=== PATIENT | female | born 2000 | race Caucasian/White ===

== ENCOUNTER 2024-03-05 17:50 | Emergency (ER) | payer BC, MEDICAID, SELFPAY ==
[2024-03-05 17:56] VITALS: BP 112/71; PULSE 78; RESP 16; TEMP 37.7; O2SAT 98; BMI 20.8
--- NOTE | 2024-03-05 18:25 | ED_ITS ---
HPI - Psych General Time Seen by Provider: 18:25 <Anel Barrios MD - Last Filed: 03/05/24 23:57> Date Seen: 03/05/24 <Anel Barrios MD - Last Filed: 03/05/24 23:57> Chief Complaint: Psychiatric Problem/Disorder <Anel Barrios MD - Last Filed: 03/05/24 23:57> Stated Complaint: Suicidal ideation <Anel Barrios MD - Last Filed: 03/05/24 23:57> Time Seen by Provider: 03/05/24 18:25 <Anel Barrios MD - Last Filed: 03/05/24 23:57> Source: patient, family, RN notes reviewed and old records reviewed <Anel Barrios MD - Last Filed: 03/05/24 23:57> Mode of arrival: ambulatory <Anel Barrios MD - Last Filed: 03/05/24 23:57> Limitations: no limitations <Anel Barrios MD - Last Filed: 03/05/24 23:57> History of Present Illness HPI Narrative: Lindsey is a 24-year-old female with history eating disorder, autism spectrum disorder, (stated by sister although this is not noted in any previous visits to our hospital) who is brought to the emergency room by his sister for suicidal ideation. Lindsey has been in a residential treatment center in the [facility] with [facility] for an eating disorder. She has been there approximately a month and then last week had some self-harm where she cause lacerations to her left arm with some glass and the end of a pencil eraser in which the eraser was removed and the metal was used. Staff on site gave her for stated as well as additional support. However she has been non compliant with their rules and was discharged today. She agreed that she had suicidal thoughts and passive plan. Her sister is here telling me most of the history and states that Lindsey tends to keep a lot of secrets and has a hard time expressing hers elf. Last TuesdayMarch 02 Lindsey had been seen by counselors and had denied suicidal ideation and is night self-harm. However her sister here today tells me that Lindsey has a long history of self-harm. Lindsey started Prozac 2 weeks ago. <Anel Barrios MD - Last Filed: 03/05/24 23:57> Related Data Home Medications: Home Medications Medication Instructions Recorded Confirmed acetaminophen 325 mg tablet mg PO 03/05/24 fluoxetine 20 mg capsule 20 mg PO DAILY 03/05/24 03/05/24 ondansetron 4 mg disintegrating mg PO 03/05/24 tablet polyethylene glycol 3350 17 g PO 03/05/24 gram/dose oral powder vitamin with calcium tab PO 03/05/24 no.72-iron 27 mg-folic acid 1 mg tablet (M-Prashant Plus) simethicone 125 mg chewable tablet 125 mg PO 3XD 03/05/24 03/05/24 <Anel Barrios MD - Last Filed: 03/05/24 23:57> Allergies/Adverse Reactions: Allergies Allergy/AdvReac Type Severity Reaction Status Date / Time No Known Drug Allergies Allergy Verified 03/05/24 18:06 <Anel Barrios MD - Last Filed: 03/05/24 23:57> Review of Systems Status of ROS: Reports: 10 or more systems reviewed and unremarkable except as noted in History and below <Anel Barrios MD - Last Filed: 03/05/24 23:57> Const: Reports: fever (Low-grade at 99.9.); Denies: chills <Anel Barrios MD - Last Filed: 03/05/24 23:57> Eyes: Denies: change in vision <Anel Barrios MD - Last Filed: 03/05/24 23:57> ENMT: Denies: throat pain or neck pain <Anel Barrios MD - Last Filed: 03/05/24 23:57> Cardio: Denies: chest pain <Anel Barrios MD - Last Filed: 03/05/24 23:57> Resp: Denies: cough <Anel Barrios MD - Last Filed: 03/05/24 23:57> GI: Denies: abdominal pain <Anel Barrios MD - Last Filed: 03/05/24 23:57> : Reports: other (Denies sexual activity) <Anel Barrios MD - Last Filed: 03/05/24 23:57> Musculo: Denies: neck pain <Anel Barrios MD - Last Filed: 03/05/24 23:57> Psych: Reports: anxiety and suicidal ideation <Anel Barrios MD - Last Filed: 03/05/24 23:57> [facility] Social History: Social History Smoking Status: Never smoker Do you use any of these nicotine containing products: None Second hand tobacco smoke exposure: No How often do you have a drink containing alcohol: never AUDIT-C Alcohol total score: 0 Non-prescribed substance use: denies use <Anel Barrios MD - Last Filed: 03/05/24 23:57> Exam Narrative: Exam Narrative: Lindsey is awake and oriented. She has very poor visual contact. She is preferring to hang her head and speaks very softly. She is moving her legs quite quickly as if she is very agitated and very anxious but her pulses are actually around 70. Eyes are clear. With regular rate and rhythm and lungs are clear bilaterally. Abdomen soft nontender. Moving all extremities. Examination of her left arm shows multiple superficial lacerations in the mid to late range of healing on the dorsum and volar aspect of her forearm. There is a less than dime-sized area of purulence on the dorsal aspect. No foreign bodies are noted. There is mild erythema surrounding this area. Evaluation, wound culture accomplished, cleansing and dressing all done at the same time. <Anel Barrios MD - Last Filed: 03/05/24 23:57> Const: Vital Signs, click to edit/add: Vital Signs - 24 hr 03/07/24 09:55 03/07/24 23:35 03/08/24 05:03 Temperature 98.1 F 98.1 F Pulse Rate [Pulse Oximeter] 63 57 L 60 Respiratory Rate 18 16 16 Blood Pressure [Ri ght Upper Arm] 119/70 90/47 L 102/55 L Pulse Oximetry 100 97 97 Oxygen Delivery Me thod Room Air Room Air <Anel Barrios MD - Last Filed: 03/05/24 23:57> Vital Signs, click to edit/add: Vital Signs - 24 hr 03/07/24 09:55 03/07/24 23:35 03/08/24 05:03 Temperature 98.1 F 98.1 F Pulse Rate [Pulse Oximeter] 63 57 L 60 Respiratory Rate 18 16 16 Blood Pressure [Ri ght Upper Arm] 119/70 90/47 L 102/55 L Pulse Oximetry 100 97 97 Oxygen Delivery Me thod Room Air Room Air <Tommy Mccauley MD - Last Filed: 03/06/24 10:23> Vital Signs, click to edit/add: Vital Signs - 24 hr 03/07/24 09:55 03/07/24 23:35 03/08/24 05:03 Temperature 98.1 F 98.1 F Pulse Rate [Pulse Oximeter] 63 57 L 60 Respiratory Rate 18 16 16 Blood Pressure [Ri ght Upper Arm] 119/70 90/47 L 102/55 L Pulse Oximetry 100 97 97 Oxygen Delivery Me thod Room Air Room Air <Alvarez Paez MD - Last Filed: 03/06/24 16:10> Vital Signs, click to edit/add: Vital Signs - 24 hr 03/07/24 09:55 03/07/24 23:35 03/08/24 05:03 Temperature 98.1 F 98.1 F Pulse Rate [Pulse Oximeter] 63 57 L 60 Respiratory Rate 18 16 16 Blood Pressure [Ri ght Upper Arm] 119/70 90/47 L 102/55 L Pulse Oximetry 100 97 97 Oxygen Delivery Me thod Room Air Room Air <Juarez Uriostegui MD - Last Filed: 03/06/24 20:22> Vital Signs, click to edit/add: Vital Signs - 24 hr 03/07/24 09:55 03/07/24 23:35 03/08/24 05:03 Temperature 98.1 F 98.1 F Pulse Rate [Pulse Oximeter] 63 57 L 60 Respiratory Rate 18 16 16 Blood Pressure [Ri ght Upper Arm] 119/70 90/47 L 102/55 L Pulse Oximetry 100 97 97 Oxygen Delivery Me thod Room Air Room Air <Keren Valiente MD - Last Filed: 03/15/24 00:00> Vital Signs, click to edit/add: Vital Signs - 24 hr 03/07/24 09:55 03/07/24 23:35 03/08/24 05:03 Temperature 98.1 F 98.1 F Pulse Rate [Pulse Oximeter] 63 57 L 60 Respiratory Rate 18 16 16 Blood Pressure [Ri ght Upper Arm] 119/70 90/47 L 102/55 L Pulse Oximetry 100 97 97 Oxygen Delivery Me thod Room Air Room Air <Reno Hernandez MD - Last Filed: 03/07/24 15:12> Documenting provider has reviewed patient's vital signs: yes <Anel Barrios MD - Last Filed: 03/05/24 23:57> Course Course ED Course: At this time Lindsey presents with history of eating disorder, was directed to leave the program because she was non compliant, history of autism spectrum disorder who comes to the emergency room with suicidal ideation. She started her Prozac 2 weeks ago. Sister is very worried about her. Discusses suicidal ideation somewhat passively but did have an idea to hang herself. There is a dramatic element in effect to with the very anxious behavior shaking of the legs difficulty with speaking but heart rate is normal. I do think she has very early cellulitis and 1 of her wounds and therefore will start her on Keflex 500 mg p.o.. A given history of eating disorder and suicidal ideation will also check CBC, comprehensive panel, salicylate, acetaminophen, drug screen, urinalysis, test, alcohol. Will add on vitamin-D, magnesium and TSH. Patient is agreeable to this. <Anel Barrios MD - Last Filed: 03/05/24 23:57> Reevaluation(s) Reevaluation #1: At the pleasure of speaking with [employer] industrial economics professor who does recommend inpatient treatment for Lindsey. She denies suicidal ideation in the room and yet told sister that she does have a plan to kill herself. She does not appear to be in a state that she would be able to contract for safety, she has no outside services at this time. Therefore will recommend inpatient treatment. Is now changing into scrubs. She has requested something for anxiety and I have ordered Ativan 1 mg p.o. I did speak to Lindsey and her sister. Lindsey is tearful at this time. Eating small amounts of food right now. She will be placed in patient. Sister has limited us to within an hour of this area. Loly did talk to her about how challenging that may be. If we are unable to find placement will need to reassess and possibly expand our area of treatment. <Anel Barrios MD - Last Filed: 03/05/24 23:57> Reevaluation #2: Recheck-patient signed out to Dr. Paez at shift change-10:00 a.m. on 03/06. 24-year-old female with a history of eating disorder recently and [facility], now out) with self-harming behavior and suicidal ideation. She was seen yesterday and has been boarding in the ER awaiting inpatient mental health placement. She is medically clear. She is not on a hold but she would be holdable. So far she is voluntary. Through the day shift she was evaluated by several inpatient mental health facilities and they declined her. Unclear why they are declining. At 3:00 p.m. we reordered [facility] evaluation to repeat check. Signed out to my partner, Dr. Uriostegui at shift change-1600. <Alvarez Paez MD - Last Filed: 03/06/24 16:10> Time of Reevaluation #3: 20:20 <Juarez Uriostegui MD - Last Filed: 03/06/24 20:22> Reevaluation #3: Patient accepted in sign-out at 4:00 p.m.. Briefly, 24-year-old female with history of eating disorder presents with suicide ideation. Patient had repeat deck assessment and continue to recommend inpatient treatment. Difficulty with placement secondary to coexisting eating disorder, consider contacting [facility] for advice tomorrow <Juarez Uriostegui MD - Last Filed: 03/06/24 20:22> Additional Reevaluation(s): 03/07/24 0720- I assumed care for patient overnight, no additional issues or updates. Awaiting patient placement and or social media assistant consult for assistance. Vital signs remained stable, no additional medications were given. Dr. Valiente 03/08/24-0711- I assumed care for patient overnight only. No additional issues or updates. We continue to await placement recommendations which seem dismal. No additional care or medications were needed. Nursing team did report to me that she slept comfortably through the night. - Dr. Valiente <Keren Valiente MD - Last Filed: 03/15/24 00:00> Vital Signs Vital signs: Initial Vital Signs Temperature 99.9 F H 03/05/24 17:56 Temperature Source Temporal Artery Scan 03/05/24 17:56 Pulse Rate 78 03/05/24 17:56 Respiratory Rate 16 03/05/24 17:56 Blood Pressure 112/71 03/05/24 17:56 Blood Pressure Mean 84 03/05/24 17:56 Blood Pressure Position Sitting 03/05/24 17:56 Pulse Oximetry 98 03/05/24 17:56 Oxygen Delivery Method Room Air 03/05/24 17:56 Vital Signs Temperature 99.9 F H 03/05/24 17:56 Pulse Rate 78 03/05/24 17:56 Respiratory Rate 16 03/05/24 17:56 Blood Pressure 112/71 03/05/24 17:56 Pulse Oximetry 98 03/05/24 17:56 Oxygen Delivery Method Room Air 03/05/24 17:56 Temperature 97.3 F L 03/08/24 14:00 Pulse Rate 60 03/08/24 14:00 Respiratory Rate 12 03/08/24 14:00 Blood Pressure 116/63 03/08/24 14:00 Pulse Oximetry 97 03/08/24 05:03 Oxygen Delivery Method Room Air 03/08/24 05:03 <Anel Barrios MD - Last Filed: 03/05/24 23:57> Initial Vital Signs Temperature 99.9 F H 03/05/24 17:56 Temperature Source Temporal Artery Scan 03/05/24 17:56 Pulse Rate 78 03/05/24 17:56 Respiratory Rate 16 03/05/24 17:56 Blood Pressure 112/71 03/05/24 17:56 Blood Pressure Mean 84 03/05/24 17:56 Blood Pressure Position Sitting 03/05/24 17:56 Pulse Oximetry 98 03/05/24 17:56 Oxygen Delivery Method Room Air 03/05/24 17:56 Vital Signs Temperature 99.9 F H 03/05/24 17:56 Pulse Rate 78 03/05/24 17:56 Respiratory Rate 16 03/05/24 17:56 Blood Pressure 112/71 03/05/24 17:56 Pulse Oximetry 98 03/05/24 17:56 Oxygen Delivery Method Room Air 03/05/24 17:56 Temperature 97.3 F L 03/08/24 14:00 Pulse Rate 60 03/08/24 14:00 Respiratory Rate 12 03/08/24 14:00 Blood Pressure 116/63 03/08/24 14:00 Pulse Oximetry 97 03/08/24 05:03 Oxygen Delivery Method Room Air 03/08/24 05:03 <Tommy Mccauley MD - Last Filed: 03/06/24 10:23> Initial Vital Signs Temperature 99.9 F H 03/05/24 17:56 Temperature Source Temporal Artery Scan 03/05/24 17:56 Pulse Rate 78 03/05/24 17:56 Respiratory Rate 16 03/05/24 17:56 Blood Pressure 112/71 03/05/24 17:56 Blood Pressure Mean 84 03/05/24 17:56 Blood Pressure Position Sitting 03/05/24 17:56 Pulse Oximetry 98 03/05/24 17:56 Oxygen Delivery Method Room Air 03/05/24 17:56 Vital Signs Temperature 99.9 F H 03/05/24 17:56 Pulse Rate 78 03/05/24 17:56 Respiratory Rate 16 03/05/24 17:56 Blood Pressure 112/71 03/05/24 17:56 Pulse Oximetry 98 03/05/24 17:56 Oxygen Delivery Method Room Air 03/05/24 17:56 Temperature 97.3 F L 03/08/24 14:00 Pulse Rate 60 03/08/24 14:00 Respiratory Rate 12 03/08/24 14:00 Blood Pressure 116/63 03/08/24 14:00 Pulse Oximetry 97 03/08/24 05:03 Oxygen Delivery Method Room Air 03/08/24 05:03 <Alvarez Paez MD - Last Filed: 03/06/24 16:10> Initial Vital Signs Temperature 99.9 F H 03/05/24 17:56 Temperature Source Temporal Artery Scan 03/05/24 17:56 Pulse Rate 78 03/05/24 17:56 Respiratory Rate 16 03/05/24 17:56 Blood Pressure 112/71 03/05/24 17:56 Blood Pressure Mean 84 03/05/24 17:56 Blood Pressure Position Sitting 03/05/24 17:56 Pulse Oximetry 98 03/05/24 17:56 Oxygen Delivery Method Room Air 03/05/24 17:56 Vital Signs Temperature 99.9 F H 03/05/24 17:56 Pulse Rate 78 03/05/24 17:56 Respiratory Rate 16 03/05/24 17:56 Blood Pressure 112/71 03/05/24 17:56 Pulse Oximetry 98 03/05/24 17:56 Oxygen Delivery Method Room Air 03/05/24 17:56 Temperature 97.3 F L 03/08/24 14:00 Pulse Rate 60 03/08/24 14:00 Respiratory Rate 12 03/08/24 14:00 Blood Pressure 116/63 03/08/24 14:00 Pulse Oximetry 97 03/08/24 05:03 Oxygen Delivery Method Room Air 03/08/24 05:03 <Juarez Uriostegui MD - Last Filed: 03/06/24 20:22> Initial Vital Signs Temperature 99.9 F H 03/05/24 17:56 Temperature Source Temporal Artery Scan 03/05/24 17:56 Pulse Rate 78 03/05/24 17:56 Respiratory Rate 16 03/05/24 17:56 Blood Pressure 112/71 03/05/24 17:56 Blood Pressure Mean 84 03/05/24 17:56 Blood Pressure Position Sitting 03/05/24 17:56 Pulse Oximetry 98 03/05/24 17:56 Oxygen Delivery Method Room Air 03/05/24 17:56 Vital Signs Temperature 99.9 F H 03/05/24 17:56 Pulse Rate 78 03/05/24 17:56 Respiratory Rate 16 03/05/24 17:56 Blood Pressure 112/71 03/05/24 17:56 Pulse Oximetry 98 03/05/24 17:56 Oxygen Delivery Method Room Air 03/05/24 17:56 Temperature 97.3 F L 03/08/24 14:00 Pulse Rate 60 03/08/24 14:00 Respiratory Rate 12 03/08/24 14:00 Blood Pressure 116/63 03/08/24 14:00 Pulse Oximetry 97 03/08/24 05:03 Oxygen Delivery Method Room Air 03/08/24 05:03 <Keren Valiente MD - Last Filed: 03/15/24 00:00> Initial Vital Signs Temperature 99.9 F H 03/05/24 17:56 Temperature Source Temporal Artery Scan 03/05/24 17:56 Pulse Rate 78 03/05/24 17:56 Respiratory Rate 16 03/05/24 17:56 Blood Pressure 112/71 03/05/24 17:56 Blood Pressure Mean 84 03/05/24 17:56 Blood Pressure Position Sitting 03/05/24 17:56 Pulse Oximetry 98 03/05/24 17:56 Oxygen Delivery Method Room Air 03/05/24 17:56 Vital Signs Temperature 99.9 F H 03/05/24 17:56 Pulse Rate 78 03/05/24 17:56 Respiratory Rate 16 03/05/24 17:56 Blood Pressure 112/71 03/05/24 17:56 Pulse Oximetry 98 03/05/24 17:56 Oxygen Delivery Method Room Air 03/05/24 17:56 Temperature 97.3 F L 03/08/24 14:00 Pulse Rate 60 03/08/24 14:00 Respiratory Rate 12 03/08/24 14:00 Blood Pressure 116/63 03/08/24 14:00 Pulse Oximetry 97 03/08/24 05:03 Oxygen Delivery Method Room Air 03/08/24 05:03 <Reno Hernandez MD - Last Filed: 03/07/24 15:12> Medications Administered Medications: Discontinued Medications Generic Name Dose Route Start Last Admin Trade Name Freq PRN Reason Stop Dose Admin Cephalexin HCl 500 mg 03/05/24 18:53 03/05/24 19:03 Cephalexin 500 Mg Capsule PO 03/05/24 18:54 500 mg ONCE ONE Administration Cephalexin HCl 500 mg 03/06/24 09:00 03/08/24 09:12 Cephalexin 500 Mg Capsule PO 500 mg TID RUSS Administration Fluoxetine HCl 20 mg 03/06/24 09:00 03/08/24 09:12 Fluoxetine Hcl 20 Mg Capsule PO 20 mg DAILY RUSS Administration Lorazepam 1 mg 03/05/24 20:25 03/05/24 20:32 Lorazepam 1 Mg Tablet PO 03/05/24 20:26 1 mg ONCE ONE Administration Lorazepam 0.5 mg 03/06/24 08:50 03/07/24 13:42 Lorazepam 0.5 Mg Tablet PO 0.5 mg Q4H PRN Administration <Anel Barrios MD - Last Filed: 03/05/24 23:57> Discontinued Medications Generic Name Dose Route Start Last Admin Trade Name Freq PRN Reason Stop Dose Admin Cephalexin HCl 500 mg 03/05/24 18:53 03/05/24 19:03 Cephalexin 500 Mg Capsule PO 03/05/24 18:54 500 mg ONCE ONE Administration Cephalexin HCl 500 mg 03/06/24 09:00 03/08/24 09:12 Cephalexin 500 Mg Capsule PO 500 mg TID RUSS Administration Fluoxetine HCl 20 mg 03/06/24 09:00 03/08/24 09:12 Fluoxetine Hcl 20 Mg Capsule PO 20 mg DAILY RUSS Administration Lorazepam 1 mg 03/05/24 20:25 03/05/24 20:32 Lorazepam 1 Mg Tablet PO 03/05/24 20:26 1 mg ONCE ONE Administration Lorazepam 0.5 mg 03/06/24 08:50 03/07/24 13:42 Lorazepam 0.5 Mg Tablet PO 0.5 mg Q4H PRN Administration <Tommy Mccauley MD - Last Filed: 03/06/24 10:23> Discontinued Medications Generic Name Dose Route Start Last Admin Trade Name Freq PRN Reason Stop Dose Admin Cephalexin HCl 500 mg 03/05/24 18:53 03/05/24 19:03 Cephalexin 500 Mg Capsule PO 03/05/24 18:54 500 mg ONCE ONE Administration Cephalexin HCl 500 mg 03/06/24 09:00 03/08/24 09:12 Cephalexin 500 Mg Capsule PO 500 mg TID RUSS Administration Fluoxetine HCl 20 mg 03/06/24 09:00 03/08/24 09:12 Fluoxetine Hcl 20 Mg Capsule PO 20 mg DAILY RUSS Administration Lorazepam 1 mg 03/05/24 20:25 03/05/24 20:32 Lorazepam 1 Mg Tablet PO 03/05/24 20:26 1 mg ONCE ONE Administration Lorazepam 0.5 mg 03/06/24 08:50 03/07/24 13:42 Lorazepam 0.5 Mg Tablet PO 0.5 mg Q4H PRN Administration <Alvarez Paez MD - Last Filed: 03/06/24 16:10> Discontinued Medications Generic Name Dose Route Start Last Admin Trade Name Freq PRN Reason Stop Dose Admin Cephalexin HCl 500 mg 03/05/24 18:53 03/05/24 19:03 Cephalexin 500 Mg Capsule PO 03/05/24 18:54 500 mg ONCE ONE Administration Cephalexin HCl 500 mg 03/06/24 09:00 03/08/24 09:12 Cephalexin 500 Mg Capsule PO 500 mg TID RUSS Administration Fluoxetine HCl 20 mg 03/06/24 09:00 03/08/24 09:12 Fluoxetine Hcl 20 Mg Capsule PO 20 mg DAILY RUSS Administration Lorazepam 1 mg 03/05/24 20:25 03/05/24 20:32 Lorazepam 1 Mg Tablet PO 03/05/24 20:26 1 mg ONCE ONE Administration Lorazepam 0.5 mg 03/06/24 08:50 03/07/24 13:42 Lorazepam 0.5 Mg Tablet PO 0.5 mg Q4H PRN Administration <Juarez Uriostegui MD - Last Filed: 03/06/24 20:22> Discontinued Medications Generic Name Dose Route Start Last Admin Trade Name Freq PRN Reason Stop Dose Admin Cephalexin HCl 500 mg 03/05/24 18:53 03/05/24 19:03 Cephalexin 500 Mg Capsule PO 03/05/24 18:54 500 mg ONCE ONE Administration Cephalexin HCl 500 mg 03/06/24 09:00 03/08/24 09:12 Cephalexin 500 Mg Capsule PO 500 mg TID RUSS Administration Fluoxetine HCl 20 mg 03/06/24 09:00 03/08/24 09:12 Fluoxetine Hcl 20 Mg Capsule PO 20 mg DAILY RUSS Administration Lorazepam 1 mg 03/05/24 20:25 03/05/24 20:32 Lorazepam 1 Mg Tablet PO 03/05/24 20:26 1 mg ONCE ONE Administration Lorazepam 0.5 mg 03/06/24 08:50 03/07/24 13:42 Lorazepam 0.5 Mg Tablet PO 0.5 mg Q4H PRN Administration <Keren Valiente MD - Last Filed: 03/15/24 00:00> Discontinued Medications Generic Name Dose Route Start Last Admin Trade Name Freq PRN Reason Stop Dose Admin Cephalexin HCl 500 mg 03/05/24 18:53 03/05/24 19:03 Cephalexin 500 Mg Capsule PO 03/05/24 18:54 500 mg ONCE ONE Administration Cephalexin HCl 500 mg 03/06/24 09:00 03/08/24 09:12 Cephalexin 500 Mg Capsule PO 500 mg TID RUSS Administration Fluoxetine HCl 20 mg 03/06/24 09:00 03/08/24 09:12 Fluoxetine Hcl 20 Mg Capsule PO 20 mg DAILY RUSS Administration Lorazepam 1 mg 03/05/24 20:25 03/05/24 20:32 Lorazepam 1 Mg Tablet PO 03/05/24 20:26 1 mg ONCE ONE Administration Lorazepam 0.5 mg 03/06/24 08:50 03/07/24 13:42 Lorazepam 0.5 Mg Tablet PO 0.5 mg Q4H PRN Administration <Reno Hernandez MD - Last Filed: 03/07/24 15:12> MDM - Psych MDM Narrative Medical decision making narrative: 1. Suicidal ideation -patient is not completely forthcoming with answers to questions about suicidal ideation or self-harm. Lindsey had admitted to sister earlier today about suicidal ideation with intent to hang herself. Now she completely denies suicidal ideation but is not making good eye contact. I do not feel that we are able to contract for safety or guarantee safety of this young woman if she departs. Therefore will have her stay. Mental health industrial economics professor agrees that she needs inpatient treatment. I agree with this as well. She is voluntary at this time. Patient does request medication for anxiety and she is given Ativan p.o.. Laboratory values reassuring. Negative for Tylenol, alcohol, salicylates and negative drug screen. 2. Eating disorder-has been in a residential treatment program with [facility] in the [facility] over the past month. She has normal kidney function, no evidence of increased LFTs, has low normal vitamin-D and magnesium is 2.2. The this does appear to be some evidence of appropriate p.o. intake over the past month. 2. Autism spectrum disorder -no documentation in our chart of this. Patient makes poor eye contact but is answering questions appropriately although quietly. 3. Early cellulitis-1st dose of Keflex given. Remainder of prescription put into [facility]. 500 mg p.o. t.i.d. x7 days. 4. Disposition-we are looking for placement in the area. Nursing staff does tell me that Lindsey nelson does understand if we do have to expand outside of the preferred area which is 1 hour cervical away from here. This patient will be signed out to my partner Dr. Mccauley 4 disposition. Patient has been resting comfortably and is cooperative. <Anel Barrios MD - Last Filed: 03/05/24 23:57> 1. Suicidal ideation -patient is not completely forthcoming with answers to questions about suicidal ideation or self-harm. Lindsey had admitted to sister earlier today about suicidal ideation with intent to hang herself. Now she completely denies suicidal ideation but is not making good eye contact. I do not feel that we are able to contract for safety or guarantee safety of this young woman if she departs. Therefore will have her stay. Mental health industrial economics professor agrees that she needs inpatient treatment. I agree with this as well. She is voluntary at this time. Patient does request medication for anxiety and she is given Ativan p.o.. Laboratory values reassuring. Negative for Tylenol, alcohol, salicylates and negative drug screen. 2. Eating disorder-has been in a residential treatment program with [facility] in the [facility] over the past month. She has normal kidney function, no evidence of increased LFTs, has low normal vitamin-D and magnesium is 2.2. The this does appear to be some evidence of appropriate p.o. intake over the past month. 2. Autism spectrum disorder -no documentation in our chart of this. Patient makes poor eye contact but is answering questions appropriately although quietly. 3. Early cellulitis-1st dose of Keflex given. Remainder of prescription put into instant med[facility]. 500 mg p.o. t.i.d. x7 days. 4. Disposition-we are looking for placement in the area. Nursing staff does tell me that Lindsey nelson does understand if we do have to expand outside of the preferred area which is 1 hour away from here. This patient will be signed out to my partner Dr. Mccauley 4 disposition. Patient has been resting comfortably and is cooperative. Parisa --I received this patient at change of shift. Anticipating the psychiatric placement. Discuss this case with prior provider and have reviewed records. No events. Medically clear for psychiatric placement. 0830 -- Has had an uneventful night. Have ordered scheduled cephalexin and fluoxetine and p.r.n. lorazepam. Has been decline from a psychiatric placement to this point. <Tommy Mccauley MD - Last Filed: 03/06/24 10:23> 1. Suicidal ideation -patient is not completely forthcoming with answers t o questions about suicidal ideation or self-harm. Lindsey had admitted to sister earlier today about suicidal ideation with intent to hang herself. Now she completely denies suicidal ideation but is not making good eye contact. I do not feel that we are able to contract for safety or guarantee safety of this young woman if she departs. Therefore will have her stay. Mental health industrial economics professor agrees that she needs inpatient treatment. I agree with this as well. She is voluntary at this time. Patient does request medication for anxiety and she is given Ativan p.o.. Laboratory values reassuring. Negative for Tylenol, alcohol, salicylates and negative drug screen. 2. Eating disorder-has been in a residential treatment program with Romy vinicius in the [facility] over the past month. She has normal kidney function, no evidence of increased LFTs, has low normal vitamin-D and magnesium is 2.2. The this does appear to be some evidence of appropriate p.o. intake over the past month. 2. Autism spectrum disorder -no documentation in our chart of this. Patient makes poor eye contact but is answering questions appropriately although quietly. 3. Early cellulitis-1st dose of Keflex given. Remainder of prescription put into instant med[facility]. 500 mg p.o. t.i.d. x7 days. 4. Disposition-we are looking for placement in the area. Nursing staff does tell me that Lindsey nelson does understand if we do have to expand outside of the preferred area which is 1 hour away from here. This patient will be signed out to my partner Dr. Mccauley 4 disposition. Patient has been resting comfortably and is cooperative. Parisa --I received this patient at change of shift. Anticipating the psychiatric placement. Discuss this case with prior provider and have reviewed records. No events. Medically clear for psychiatric placement. 0830 -- Has had an uneventful night. Have ordered scheduled cephalexin and fluoxetine and p.r.n. lorazepam. Has been decline from a psychiatric placement to this point. Addendum 10:07 a.m. 03/07/2024: Patient has had no significant problems on this shift, social Service is still attempting to make a transfer for mental health an eating disorder. <Reno Hernandez MD - Last Filed: 03/07/24 15:12> Medical Records Attestation: I reviewed the patient's medical records. <Anel Barrios MD - Last Filed: 03/05/24 23:57> Lab Data Attestation: I reviewed the patient's lab results. <Anel Barrios MD - Last Filed: 03/05/24 23:57> Labs: Lab Results 04/08/24 04/08/24 04/09/24 Range/Units 18:57 19:00 02:05 WBC 6.35 (4.50-11.00) K/uL RBC 4.30 (4.00-5.20) m/uL Hgb 13.0 (12.0-16.0) gm/dL Hct 38.3 (33.0-51.0) % MCV 89 (80-100) fL MCH 30 (26-34) pg MCHC 34 (32-36) gm/dL RDW Coeff of Anel 12.6 (11.5-15.5) % Plt Count 206 (140-440) K/uL Neut % (Auto) 54.4 (42.0-72.0) % Lymph % (Auto) 34.0 (20-44) % Burnett % (Auto) 9.0 (0.0-11.0) % Eos % (Auto) 1.6 (0.0-7.0) % Baso % (Auto) 0.8 (0.0-3.0) % Neut # (Auto) 3.46 (1.7-7.0) K/uL Lymph # (Auto) 2.16 (0.90-2.90) K/uL Burnett # (Auto) 0.60 (0.00-0.90) K/UL Eos # (Auto) 0.10 (0.00-0.50) K/uL Baso # (Auto) 0.05 (0.00-0.30) K/uL Abs Immat Gran (auto) 0.01 (0.00-0.30) K/uL Imm/Tot Granulo (auto) 0.2 % Sodium 138 (135-149) mmol/L Potassium 3.9 (3.6-5.1) mmol/L Chloride 105 (96-114) mmol/L Carbon Dioxide 24 (20-32) mmol/L Anion Gap 9 (7-15) mEq/L BUN 12 (5-24) mg/dL Creatinine 0.6 (0.5-1.5) mg/dL Estimated Creat Clear 144.28 Estimated GFR 130 ml/min Glucose 95 (60-115) mg/dL Calcium 9.8 (8.4-10.6) mg/dL Magnesium 2.2 (1.5-2.6) mg/dL Total Bilirubin 0.4 (0.1-1.5) mg/dL AST 22 (12-35) U/L ALT 10 (4-35) U/L Alkaline Phosphatase 48 (40-150) U/L C-Reactive Protein < 0.5 L (0.5-1.0) mg/dL Total Protein 8.1 (6.0-8.3) g/dL Albumin 4.7 (3.3-5.0) g/dL 25-OH Vitamin D Total 32 (30-80) ng/mL TSH 2.700 (0.270-4.200) uIU/mL Urine Color Yellow (Yellow) Urine Appearance Clear (Clear) Urine pH 7.0 (5.0-8.5) Ur Specific Rawlins 1.010 (1.000-1.030) Urine Protein Negative (Negative) Urine Glucose (UA) Negative (Negative) Urine Ketones Negative (Negative) Urine Blood Negative (Negative) Urine Nitrite Negative (Negative) Urine Bilirubin Negative (Negative) Urine Urobilinogen 0.2 (0.2-1.0) Ur Leukocyte Esterase 2+ A (Negative) Urine RBC 0-2 (0-2) Urine WBC 2-5 (0-5) Ur Squamous Epith Cells Moderate A (None-Few) Urine Bacteria Moderate A (None) Urine HCG, Qual Negative (Negative) Salicylates < 1.0 L (1.0-10) mg/dL Urine Opiates Screen Negative (Negative) Ur Oxycodone Screen Negative (Negative) Urine Methadone Screen Negative (Negative) Acetaminophen < 10.0 L (10.0-30.0) ug/mL Ur Barbiturates Screen Negative (Negative) U Tricyclic Antidepress Negative (Negative) Ur Phencyclidine Scrn Negative (Negative) Ur Amphetamines Screen Negative (Negative) U Methamphetamines Scrn Negative (Negative) U Benzodiazepines Scrn Negative (Negative) Urine Cocaine Screen Negative (Negative) U Marijuana (THC) Screen Negative (Negative) Ur Drug Screen Comment See Note Ethyl Alcohol < 0.01 L (0.01-0.03) % SARS-CoV-2 (PCR) Negative SARS-CoV-2 (Negative) <Anel Barrios MD - Last Filed: 03/05/24 23:57> Lab Results 03/05/24 03/05/24 03/06/24 Range/Units 18:57 19:00 02:05 WBC 6.35 (4.50-11.00) K/uL RBC 4.30 (4.00-5.20) m/uL Hgb 13.0 (12.0-16.0) gm/dL Hct 38.3 (33.0-51.0) % MCV 89 (80-100) fL MCH 30 (26-34) pg MCHC 34 (32-36) gm/dL RDW Coeff of Anel 12.6 (11.5-15.5) % Plt Count 206 (140-440) K/uL Neut % (Auto) 54.4 (42.0-72.0) % Lymph % (Auto) 34.0 (20-44) % Burnett % (Auto) 9.0 (0.0-11.0) % Eos % (Auto) 1.6 (0.0-7.0) % Baso % (Auto) 0.8 (0.0-3.0) % Neut # (Auto) 3.46 (1.7-7.0) K/uL Lymph # (Auto) 2.16 (0.90-2.90) K/uL Burnett # (Auto) 0.60 (0.00-0.90) K/UL Eos # (Auto) 0.10 (0.00-0.50) K/uL Baso # (Auto) 0.05 (0.00-0.30) K/uL Abs Immat Gran (auto) 0.01 (0.00-0.30) K/uL Imm/Tot Granulo (auto) 0.2 % Sodium 138 (135-149) mmol/L Potassium 3.9 (3.6-5.1) mmol/L Chloride 105 (96-114) mmol/L Carbon Dioxide 24 (20-32) mmol/L Anion Gap 9 (7-15) mEq/L BUN 12 (5-24) mg/dL Creatinine 0.6 (0.5-1.5) mg/dL Estimated Creat Clear 144.28 Estimated GFR 130 ml/min Glucose 95 (60-115) mg/dL Calcium 9.8 (8.4-10.6) mg/dL Magnesium 2.2 (1.5-2.6) mg/dL Total Bilirubin 0.4 (0.1-1.5) mg/dL AST 22 (12-35) U/L ALT 10 (4-35) U/L Alkaline Phosphatase 48 (40-150) U/L C-Reactive Protein < 0.5 L (0.5-1.0) mg/dL Total Protein 8.1 (6.0-8.3) g/dL Albumin 4.7 (3.3-5.0) g/dL 25-OH Vitamin D Total 32 (30-80) ng/mL TSH 2.700 (0.270-4.200) uIU/mL Urine Color Yellow (Yellow) Urine Appearance Clear (Clear) Urine pH 7.0 (5.0-8.5) Ur Specific Rawlins 1.010 (1.000-1.030) Urine Protein Negative (Negative) Urine Glucose (UA) Negative (Negative) Urine Ketones Negative (Negative) Urine Blood Negative (Negative) Urine Nitrite Negative (Negative) Urine Bilirubin Negative (Negative) Urine Urobilinogen 0.2 (0.2-1.0) Ur Leukocyte Esterase 2+ A (Negative) Urine RBC 0-2 (0-2) Urine WBC 2-5 (0-5) Ur Squamous Epith Cells Moderate A (None-Few) Urine Bacteria Moderate A (None) Urine HCG, Qual Negative (Negative) Salicylates < 1.0 L (1.0-10) mg/dL Urine Opiates Screen Negative (Negative) Ur Oxycodone Screen Negative (Negative) Urine Methadone Screen Negative (Negative) Acetaminophen < 10.0 L (10.0-30.0) ug/mL Ur Barbiturates Screen Negative (Negative) U Tricyclic Antidepress Negative (Negative) Ur Phencyclidine Scrn Negative (Negative) Ur Amphetamines Screen Negative (Negative) U Methamphetamines Scrn Negative (Negative) U Benzodiazepines Scrn Negative (Negative) Urine Cocaine Screen Negative (Negative) U Marijuana (THC) Screen Negative (Negative) Ur Drug Screen Comment See Note Ethyl Alcohol < 0.01 L (0.01-0.03) % SARS-CoV-2 (PCR) Negative SARS-CoV-2 (Negative) <Tommy Mccauley MD - Last Filed: 03/06/24 10:23> Lab Results 03/05/24 03/05/24 03/06/24 Range/Units 18:57 19:00 02:05 WBC 6.35 (4.50-11.00) K/uL RBC 4.30 (4.00-5.20) m/uL Hgb 13.0 (12.0-16.0) gm/dL Hct 38.3 (33.0-51.0) % MCV 89 (80-100) fL MCH 30 (26-34) pg MCHC 34 (32-36) gm/dL RDW Coeff of Anel 12.6 (11.5-15.5) % Plt Count 206 (140-440) K/uL Neut % (Auto) 54.4 (42.0-72.0) % Lymph % (Auto) 34.0 (20-44) % Burnett % (Auto) 9.0 (0.0-11.0) % Eos % (Auto) 1.6 (0.0-7.0) % Baso % (Auto) 0.8 (0.0-3.0) % Neut # (Auto) 3.46 (1.7-7.0) K/uL Lymph # (Auto) 2.16 (0.90-2.90) K/uL Burnett # (Auto) 0.60 (0.00-0.90) K/UL Eos # (Auto) 0.10 (0.00-0.50) K/uL Baso # (Auto) 0.05 (0.00-0.30) K/uL Abs Immat Gran (auto) 0.01 (0.00-0.30) K/uL Imm/Tot Granulo (auto) 0.2 % Sodium 138 (135-149) mmol/L Potassium 3.9 (3.6-5.1) mmol/L Chloride 105 (96-114) mmol/L Carbon Dioxide 24 (20-32) mmol/L Anion Gap 9 (7-15) mEq/L BUN 12 (5-24) mg/dL Creatinine 0.6 (0.5-1.5) mg/dL Estimated Creat Clear 144.28 Estimated GFR 130 ml/min Glucose 95 (60-115) mg/dL Calcium 9.8 (8.4-10.6) mg/dL Magnesium 2.2 (1.5-2.6) mg/dL Total Bilirubin 0.4 (0.1-1.5) mg/dL AST 22 (12-35) U/L ALT 10 (4-35) U/L Alkaline Phosphatase 48 (40-150) U/L C-Reactive Protein < 0.5 L (0.5-1.0) mg/dL Total Protein 8.1 (6.0-8.3) g/dL Albumin 4.7 (3.3-5.0) g/dL 25-OH Vitamin D Total 32 (30-80) ng/mL TSH 2.700 (0.270-4.200) uIU/mL Urine Color Yellow (Yellow) Urine Appearance Clear (Clear) Urine pH 7.0 (5.0-8.5) Ur Specific Rawlins 1.010 (1.000-1.030) Urine Protein Negative (Negative) Urine Glucose (UA) Negative (Negative) Urine Ketones Negative (Negative) Urine Blood Negative (Negative) Urine Nitrite Negative (Negative) Urine Bilirubin Negative (Negative) Urine Urobilinogen 0.2 (0.2-1.0) Ur Leukocyte Esterase 2+ A (Negative) Urine RBC 0-2 (0-2) Urine WBC 2-5 (0-5) Ur Squamous Epith Cells Moderate A (None-Few) Urine Bacteria Moderate A (None) Urine HCG, Qual Negative (Negative) Salicylates < 1.0 L (1.0-10) mg/dL Urine Opiates Screen Negative (Negative) Ur Oxycodone Screen Negative (Negative) Urine Methadone Screen Negative (Negative) Acetaminophen < 10.0 L (10.0-30.0) ug/mL Ur Barbiturates Screen Negative (Negative) U Tricyclic Antidepress Negative (Negative) Ur Phencyclidine Scrn Negative (Negative) Ur Amphetamines Screen Negative (Negative) U Methamphetamines Scrn Negative (Negative) U Benzodiazepines Scrn Negative (Negative) Urine Cocaine Screen Negative (Negative) U Marijuana (THC) Screen Negative (Negative) Ur Drug Screen Comment See Note Ethyl Alcohol < 0.01 L (0.01-0.03) % SARS-CoV-2 (PCR) Negative SARS-CoV-2 (Negative) <Alvarez Paez MD - Last Filed: 03/06/24 16:10> Lab Results 03/05/24 03/05/24 03/06/24 Range/Units 18:57 19:00 02:05 WBC 6.35 (4.50-11.00) K/uL RBC 4.30 (4.00-5.20) m/uL Hgb 13.0 (12.0-16.0) gm/dL Hct 38.3 (33.0-51.0) % MCV 89 (80-100) fL MCH 30 (26-34) pg MCHC 34 (32-36) gm/dL RDW Coeff of Anel 12.6 (11.5-15.5) % Plt Count 206 (140-440) K/uL Neut % (Auto) 54.4 (42.0-72.0) % Lymph % (Auto) 34.0 (20-44) % Burnett % (Auto) 9.0 (0.0-11.0) % Eos % (Auto) 1.6 (0.0-7.0) % Baso % (Auto) 0.8 (0.0-3.0) % Neut # (Auto) 3.46 (1.7-7.0) K/uL Lymph # (Auto) 2.16 (0.90-2.90) K/uL Burnett # (Auto) 0.60 (0.00-0.90) K/UL Eos # (Auto) 0.10 (0.00-0.50) K/uL Baso # (Auto) 0.05 (0.00-0.30) K/uL Abs Immat Gran (auto) 0.01 (0.00-0.30) K/uL Imm/Tot Granulo (auto) 0.2 % Sodium 138 (135-149) mmol/L Potassium 3.9 (3.6-5.1) mmol/L Chloride 105 (96-114) mmol/L Carbon Dioxide 24 (20-32) mmol/L Anion Gap 9 (7-15) mEq/L BUN 12 (5-24) mg/dL Creatinine 0.6 (0.5-1.5) mg/dL Estimated Creat Clear 144.28 Estimated GFR 130 ml/min Glucose 95 (60-115) mg/dL Calcium 9.8 (8.4-10.6) mg/dL Magnesium 2.2 (1.5-2.6) mg/dL Total Bilirubin 0.4 (0.1-1.5) mg/dL AST 22 (12-35) U/L ALT 10 (4-35) U/L Alkaline Phosphatase 48 (40-150) U/L C-Reactive Protein < 0.5 L (0.5-1.0) mg/dL Total Protein 8.1 (6.0-8.3) g/dL Albumin 4.7 (3.3-5.0) g/dL 25-OH Vitamin D Total 32 (30-80) ng/mL TSH 2.700 (0.270-4.200) uIU/mL Urine Color Yellow (Yellow) Urine Appearance Clear (Clear) Urine pH 7.0 (5.0-8.5) Ur Specific Rawlins 1.010 (1.000-1.030) Urine Protein Negative (Negative) Urine Glucose (UA) Negative (Negative) Urine Ketones Negative (Negative) Urine Blood Negative (Negative) Urine Nitrite Negative (Negative) Urine Bilirubin Negative (Negative) Urine Urobilinogen 0.2 (0.2-1.0) Ur Leukocyte Esterase 2+ A (Negative) Urine RBC 0-2 (0-2) Urine WBC 2-5 (0-5) Ur Squamous Epith Cells Moderate A (None-Few) Urine Bacteria Moderate A (None) Urine HCG, Qual Negative (Negative) Salicylates < 1.0 L (1.0-10) mg/dL Urine Opiates Screen Negative (Negative) Ur Oxycodone Screen Negative (Negative) Urine Methadone Screen Negative (Negative) Acetaminophen < 10.0 L (10.0-30.0) ug/mL Ur Barbiturates Screen Negative (Negative) U Tricyclic Antidepress Negative (Negative) Ur Phencyclidine Scrn Negative (Negative) Ur Amphetamines Screen Negative (Negative) U Methamphetamines Scrn Negative (Negative) U Benzodiazepines Scrn Negative (Negative) Urine Cocaine Screen Negative (Negative) U Marijuana (THC) Screen Negative (Negative) Ur Drug Screen Comment See Note Ethyl Alcohol < 0.01 L (0.01-0.03) % SARS-CoV-2 (PCR) Negative SARS-CoV-2 (Negative) <Juarez Uriostegui MD - Last Filed: 03/06/24 20:22> Lab Results 03/05/24 03/05/24 03/06/24 Range/Units 18:57 19:00 02:05 WBC 6.35 (4.50-11.00) K/uL RBC 4.30 (4.00-5.20) m/uL Hgb 13.0 (12.0-16.0) gm/dL Hct 38.3 (33.0-51.0) % MCV 89 (80-100) fL MCH 30 (26-34) pg MCHC 34 (32-36) gm/dL RDW Coeff of Anel 12.6 (11.5-15.5) % Plt Count 206 (140-440) K/uL Neut % (Auto) 54.4 (42.0-72.0) % Lymph % (Auto) 34.0 (20-44) % Burnett % (Auto) 9.0 (0.0-11.0) % Eos % (Auto) 1.6 (0.0-7.0) % Baso % (Auto) 0.8 (0.0-3.0) % Neut # (Auto) 3.46 (1.7-7.0) K/uL Lymph # (Auto) 2.16 (0.90-2.90) K/uL Burnett # (Auto) 0.60 (0.00-0.90) K/UL Eos # (Auto) 0.10 (0.00-0.50) K/uL Baso # (Auto) 0.05 (0.00-0.30) K/uL Abs Immat Gran (auto) 0.01 (0.00-0.30) K/uL Imm/Tot Granulo (auto) 0.2 % Sodium 138 (135-149) mmol/L Potassium 3.9 (3.6-5.1) mmol/L Chloride 105 (96-114) mmol/L Carbon Dioxide 24 (20-32) mmol/L Anion Gap 9 (7-15) mEq/L BUN 12 (5-24) mg/dL Creatinine 0.6 (0.5-1.5) mg/dL Estimated Creat Clear 144.28 Estimated GFR 130 ml/min Glucose 95 (60-115) mg/dL Calcium 9.8 (8.4-10.6) mg/dL Magnesium 2.2 (1.5-2.6) mg/dL Total Bilirubin 0.4 (0.1-1.5) mg/dL AST 22 (12-35) U/L ALT 10 (4-35) U/L Alkaline Phosphatase 48 (40-150) U/L C-Reactive Protein < 0.5 L (0.5-1.0) mg/dL Total Protein 8.1 (6.0-8.3) g/dL Albumin 4.7 (3.3-5.0) g/dL 25-OH Vitamin D Total 32 (30-80) ng/mL TSH 2.700 (0.270-4.200) uIU/mL Urine Color Yellow (Yellow) Urine Appearance Clear (Clear) Urine pH 7.0 (5.0-8.5) Ur Specific Rawlins 1.010 (1.000-1.030) Urine Protein Negative (Negative) Urine Glucose (UA) Negative (Negative) Urine Ketones Negative (Negative) Urine Blood Negative (Negative) Urine Nitrite Negative (Negative) Urine Bilirubin Negative (Negative) Urine Urobilinogen 0.2 (0.2-1.0) Ur Leukocyte Esterase 2+ A (Negative) Urine RBC 0-2 (0-2) Urine WBC 2-5 (0-5) Ur Squamous Epith Cells Moderate A (None-Few) Urine Bacteria Moderate A (None) Urine HCG, Qual Negative (Negative) Salicylates < 1.0 L (1.0-10) mg/dL Urine Opiates Screen Negative (Negative) Ur Oxycodone Screen Negative (Negative) Urine Methadone Screen Negative (Negative) Acetaminophen < 10.0 L (10.0-30.0) ug/mL Ur Barbiturates Screen Negative (Negative) U Tricyclic Antidepress Negative (Negative) Ur Phencyclidine Scrn Negative (Negative) Ur Amphetamines Screen Negative (Negative) U Methamphetamines Scrn Negative (Negative) U Benzodiazepines Scrn Negative (Negative) Urine Cocaine Screen Negative (Negative) U Marijuana (THC) Screen Negative (Negative) Ur Drug Screen Comment See Note Ethyl Alcohol < 0.01 L (0.01-0.03) % SARS-CoV-2 (PCR) Negative SARS-CoV-2 (Negative) <Keren Valiente MD - Last Filed: 03/15/24 00:00> Lab Results 03/05/24 03/05/24 03/06/24 Range/Units 18:57 19:00 02:05 WBC 6.35 (4.50-11.00) K/uL RBC 4.30 (4.00-5.20) m/uL Hgb 13.0 (12.0-16.0) gm/dL Hct 38.3 (33.0-51.0) % MCV 89 (80-100) fL MCH 30 (26-34) pg MCHC 34 (32-36) gm/dL RDW Coeff of Anel 12.6 (11.5-15.5) % Plt Count 206 (140-440) K/uL Neut % (Auto) 54.4 (42.0-72.0) % Lymph % (Auto) 34.0 (20-44) % Burnett % (Auto) 9.0 (0.0-11.0) % Eos % (Auto) 1.6 (0.0-7.0) % Baso % (Auto) 0.8 (0.0-3.0) % Neut # (Auto) 3.46 (1.7-7.0) K/uL Lymph # (Auto) 2.16 (0.90-2.90) K/uL Burnett # (Auto) 0.60 (0.00-0.90) K/UL Eos # (Auto) 0.10 (0.00-0.50) K/uL Baso # (Auto) 0.05 (0.00-0.30) K/uL Abs Immat Gran (auto) 0.01 (0.00-0.30) K/uL Imm/Tot Granulo (auto) 0.2 % Sodium 138 (135-149) mmol/L Potassium 3.9 (3.6-5.1) mmol/L Chloride 105 (96-114) mmol/L Carbon Dioxide 24 (20-32) mmol/L Anion Gap 9 (7-15) mEq/L BUN 12 (5-24) mg/dL Creatinine 0.6 (0.5-1.5) mg/dL Estimated Creat Clear 144.28 Estimated GFR 130 ml/min Glucose 95 (60-115) mg/dL Calcium 9.8 (8.4-10.6) mg/dL Magnesium 2.2 (1.5-2.6) mg/dL Total Bilirubin 0.4 (0.1-1.5) mg/dL AST 22 (12-35) U/L ALT 10 (4-35) U/L Alkaline Phosphatase 48 (40-150) U/L C-Reactive Protein < 0.5 L (0.5-1.0) mg/dL Total Protein 8.1 (6.0-8.3) g/dL Albumin 4.7 (3.3-5.0) g/dL 25-OH Vitamin D Total 32 (30-80) ng/mL TSH 2.700 (0.270-4.200) uIU/mL Urine Color Yellow (Yellow) Urine Appearance Clear (Clear) Urine pH 7.0 (5.0-8.5) Ur Specific Rawlins 1.010 (1.000-1.030) Urine Protein Negative (Negative) Urine Glucose (UA) Negative (Negative) Urine Ketones Negative (Negative) Urine Blood Negative (Negative) Urine Nitrite Negative (Negative) Urine Bilirubin Negative (Negative) Urine Urobilinogen 0.2 (0.2-1.0) Ur Leukocyte Esterase 2+ A (Negative) Urine RBC 0-2 (0-2) Urine WBC 2-5 (0-5) Ur Squamous Epith Cells Moderate A (None-Few) Urine Bacteria Moderate A (None) Urine HCG, Qual Negative (Negative) Salicylates < 1.0 L (1.0-10) mg/dL Urine Opiates Screen Negative (Negative) Ur Oxycodone Screen Negative (Negative) Urine Methadone Screen Negative (Negative) Acetaminophen < 10.0 L (10.0-30.0) ug/mL Ur Barbiturates Screen Negative (Negative) U Tricyclic Antidepress Negative (Negative) Ur Phencyclidine Scrn Negative (Negative) Ur Amphetamines Screen Negative (Negative) U Methamphetamines Scrn Negative (Negative) U Benzodiazepines Scrn Negative (Negative) Urine Cocaine Screen Negative (Negative) U Marijuana (THC) Screen Negative (Negative) Ur Drug Screen Comment See Note Ethyl Alcohol < 0.01 L (0.01-0.03) % SARS-CoV-2 (PCR) Negative SARS-CoV-2 (Negative) <Reno Hernandez MD - Last Filed: 03/07/24 15:12> Discharge Plan Discharge Clinical Impression: Suicidal ideation <Anel Barrios MD - Last Filed: 03/05/24 23:57> Condition: Stable <Anel Barrios MD - Last Filed: 03/05/24 23:57> Prescriptions: No Action acetaminophen 325 mg tablet PO simethicone 125 mg tablet,chewable 125 mg PO 3XD polyethylene glycol 3350 17 gram/dose powder PO ondansetron 4 mg tablet,disintegrating PO fluoxetine 20 mg capsule 20 mg PO DAILY M- Plus 27 mg iron- 1 mg tablet PO <Anel Barrios MD - Last Filed: 03/05/24 23:57> Follow Up/Referrals: Marjan Neumann DO [Referring] - <Anel Barrios MD - Last Filed: 03/05/24 23:57>
[2024-03-05] MEDS: cephALEXin 500 MG CAPSULE PO (19:03)
[2024-03-05 19:05] LABS: Basophils Absolute Auto 0.05 K/uL (0.00-0.30); Basophils Percent Auto 0.8 % (0.0-3.0); Eosinophils Percent Auto 1.6 % (0.0-7.0); Hematocrit 38.3 % (33.0-51.0); Immature Granulocytes Abs Auto 0.01 K/uL (0.00-0.30); Immature Granulocytes Pct Auto 0.2 %; Lymphocytes Absolute Auto 2.16 K/uL (0.90-2.90); Mean Corpuscular HGB Conc 34 gm/dL (32-36); Mean Corpuscular Hemoglobin 30 pg (26-34); Mean Corpuscular Volume 89 fL (80-100); Neutrophils Absolute Auto 3.46 K/uL (1.7-7.0); Neutrophils Percent Auto 54.4 % (42.0-72.0); Platelet Count* 206 K/uL (140-440); RDW Coefficient of Variation % 12.6 % (11.5-15.5); White Blood Count* 6.35 K/uL (4.50-11.00)
[2024-03-05 19:10] LABS: Slide Review Reflex No
[2024-03-05 19:25] LABS: Appearance Urine Clear (Clear); Bilirubin Urine Negative (Negative); Blood Urine Negative (Negative); Color Urine Yellow (Yellow); Glucose Urine Negative (Negative); Ketones Urine Negative (Negative); Leukocyte Esterase Urine 2+ (Negative); Nitrite Urine Negative (Negative); Protein Urine Negative (Negative); Urobilinogen Urine 0.2 (0.2-1.0)
[2024-03-05 19:31] LABS: Amphetamine Screen Urine Negative (Negative); Barbiturate Screen Urine Negative (Negative); Benzodiazepines Screen Urine Negative (Negative); Cannabinoid Screen Urine Negative (Negative); Cocaine Screen Urine Negative (Negative); Methadone Screen Urine Negative (Negative); Methamphetamines Screen Urine Negative (Negative); Opiate Screen Urine Negative (Negative); Oxycodone Screen Urine Negative (Negative); Phencyclidine Screen Urine Negative (Negative); Tricyclic Antidepressant Urine Negative (Negative)
[2024-03-05 19:33] LABS: Albumin* 4.7 g/dL (3.3-5.0); Chloride* 105 mmol/L (96-114); Sodium* 138 mmol/L (135-149)
[2024-03-05 19:34] LABS: Potassium* 3.9 mmol/L (3.6-5.1)
[2024-03-05 19:36] LABS: Creatinine* 0.6 mg/dL (0.5-1.5); Est. Creatinine Clearance* 144.28; Estimated Glomerular Filt Rate 130 ml/min
[2024-03-05 19:37] LABS: Alanine Aminotransferase* 10 U/L (4-35); Alkaline Phosphatase* 48 U/L (40-150); Anion Gap 9 mEq/L (7-15); Aspartate Amino Transferase* 22 U/L (12-35); Bilirubin Total* 0.4 mg/dL (0.1-1.5); Blood Urea Nitrogen* 12 mg/dL (5-24); Calcium* 9.8 mg/dL (8.4-10.6); Carbon Dioxide* 24 mmol/L (20-32); Glucose* 95 mg/dL (60-115); Total Protein* 8.1 g/dL (6.0-8.3)
[2024-03-05 19:38] LABS: Magnesium* 2.2 mg/dL (1.5-2.6)
[2024-03-05 19:43] LABS: Acetaminophen* < 10.0 ug/mL (10.0-30.0); C Reactive Protein* < 0.5 mg/dL (0.5-1.0); Salicylate* < 1.0 mg/dL (1.0-10)
[2024-03-05 19:49] LABS: Bacteria Urine Moderate; RBC Urine 0-2 (0-2); Squamous Epithelial Cell Urine Moderate (None-Few)
[2024-03-05 19:50] LABS: Ur HCG Qualitative* Negative (Negative)
[2024-03-05 19:55] LABS: Ethanol* < 0.01 % (0.01-0.03)
[2024-03-05 20:14] LABS: Vitamin D 25 Hydroxy* 32 ng/mL (30-80)
[2024-03-05] MEDS: LORazepam 1 MG TABLET PO (20:32)
[2024-03-05 23:00] VITALS: BP 102/66; PULSE 64; RESP 16; TEMP 37.1; O2SAT 98
--- NOTE | 2024-03-06 00:09 | ED.NURSE ---
Inpatient bed identification summary received from [facility]. At this time, only facilities that may accept are [facility] and [facility]. Pt info packet faxed to both facilites.
[2024-03-06 02:42] LABS: SARS PCR* Negative SARS-CoV-2 (Negative)
--- NOTE | 2024-03-06 04:33 | PC.NURSE ---
pt resting, denies discomfort. Warm blanket given.
[2024-03-06 04:34] VITALS: BP 110/68; PULSE 70; RESP 16; TEMP 36.9; O2SAT 98
[2024-03-06 07:48] VITALS: BP 100/68; PULSE 72; RESP 16; TEMP 37.3; O2SAT 99
--- NOTE | 2024-03-06 08:05 | ED.NURSE ---
Patient cooperative this morning. Is making eye contact. Denies suicidal thoughts. Used restroom and brushed teeth. Declined shower and breakfast at this time. Stated that she moved here from [place] but grew up in [place]. Her sister Fartun lives in [place] and she is her primary support person. Patient stated she does not have contact with her parents. Dressing on arm cleaned up and changed this morning with bacitracin, telfa, kerlix.
[2024-03-06] MEDS: FLUOXETINE HCL 20 MG CAPSULE PO (09:26)
[2024-03-06] MEDS: cephALEXin 500 MG CAPSULE PO ×3 (09:26→21:49)
[2024-03-06] MEDS: LORazepam 0.5 MG TABLET PO ×2 (09:26→20:18)
[2024-03-06 11:05] VITALS: BP 90/59; PULSE 71; RESP 16; TEMP 37.3; O2SAT 99
--- NOTE | 2024-03-06 11:12 | PC.SOCIAL ---
Addendum entered by DALI Nicolas 03/06/24 15:45: Discharge planning: Updated list of all in-pt mental health facilities contacted today and decision on admit. 1. [facility] [phone] - no beds available, call back tomorrow after 9:00. They can consider a pt with eating disorder if bed is available. 2. [facility] [phone] (includes [place], [place] and [place])- no beds available. Call back tomorrow. Can only consider a pt with eating disorder for [place] facility if bed is available. 3. [facility] [phone] (includes [facility] and [place])- [facility] has a bed that pt can be assessed for. Only facility in their system who can consider an eating disorder patient is [place]. Faxed information to [facility] at [phone] - [facility] declined pt due to her acuity. 4. [facility] [phone] - no beds, call tomorrow after noon. 5. [facility] [phone] - no beds, call tomorrow morning. 6. [facility], not appropriate as they only accept voluntary patients, no hold or transport hold. 7. [place], [place]. not appropriate as they only accept voluntary patients, no hold or transport hold. 8. [facility]. [phone]. No beds available but would consider an eating disorder pt if bed was available. Call back tomorrow. 9. [facility] [phone] no bed available. Call back tomorrow. 10. [facility] - Declined at [place] due to not being able to meet her needs, which is only facility with a bed available to assess today. 11. [facility] [phone] ([place], , [place], [place], [place], [place]) no beds available today. Call back tomorrow. 12. [facility], . Faxed information for evaluation for wait list fax [phone]. 13. [facility] [phone] faxed information for evaluation for admit to fax#[phone]. 14. [facility] refused pt due to eating disorder. 15. [facility] refused pt due to eating disorder. welfare case worker to follow up as needed. Original Note: Discharge planning: Attempted to locate in-pt mental health placement with the following results: 1. [facility] [phone] - no beds available, call back tomorrow after 9:00. They can consider a pt with eating disorder if bed is available. 2. [facility] [phone]- no beds available. Call back tomorrow. Can only consider a pt with eating disorder for [facility] if bed is available. 3. [facility] intake [phone] - [facility] has a bed that pt can be assessed for. Only facility in their system who can consider an eating disorder patient is [facility]. Faxed information to Pam at [phone] - awaiting decision on admit. Previously per RN note, [facility] declined pt due to eating disorder diagnosis and [facility] has information and is assessing for admit. welfare case worker to follow up as needed.
[2024-03-06 14:33] VITALS: BP 98/50; PULSE 78; RESP 16; TEMP 37.1; O2SAT 99
--- NOTE | 2024-03-06 16:16 | ED.NURSE ---
Pt down to shower accompanied with security support analyst.
[2024-03-06 21:49] VITALS: BP 99/53; PULSE 62; RESP 16; O2SAT 98
--- NOTE | 2024-03-07 09:07 | ED.NURSE ---
Pt eating breakfast. Has been calm and cooperative at this time.
[2024-03-07] MEDS: cephALEXin 500 MG CAPSULE PO ×3 (09:28→23:35)
[2024-03-07] MEDS: FLUOXETINE HCL 20 MG CAPSULE PO (09:32)
[2024-03-07 09:55] VITALS: BP 119/70; PULSE 63; RESP 18; TEMP 36.7; O2SAT 100
--- NOTE | 2024-03-07 11:28 | PC.SOCIAL ---
Addendum entered by DALI Nicolas 03/07/24 13:05: Received call back from [facility] intake stating they can not accept pt's with an eating disorder. hair worker to continue to look for in-pt mental health placement. Original Note: Discharge planning: Updated list of all in-pt mental health facilities contacted yesterday and re-contacted today and decision on admit. 1. [facility] [phone] - no beds available, call back tomorrow after 9:00. They can consider a pt with eating disorder if bed is available. 2. [place] [phone] (includes [facility], [facility] and [place])- Faxed for assessment for [facility] facility [phone] attn: [facility]. No other beds available. 3. [facility] intake [phone] (includes [facility] and [facility])- [facility] has no beds today. Call back tomorrow. [facility] declined pt due to her acuity. 4. [facility] [phone] - no beds, call tomorrow after noon. 5. [facility] [phone] - no beds, call tomorrow morning. 6. [facility], not appropriate as they only accept voluntary patients, no hold or transport hold. 7. [place] [place]. not appropriate as they only accept voluntary patients, no hold or transport hold. 8. [facility]. [phone]. No beds available but would consider an eating disorder pt if bed was available. Call back tomorrow. 9. [facility] [phone] no bed available. Call back tomorrow. 10. [facility] - Declined at [place] due to not being able to meet her needs, which is only facility with a bed available to assess today. Call back after 4:00 today. 11. [facility] [phone] ([place], [facility], [facility], [facility], [place], [facility]) no beds available today. Call back tomorrow after 9:00am. 12. [facility], . Pt is on waitlist to be assessed if bed opens up. Information was already sent. 13. [facility] - declined pt due to eating disorder. 14. [facility] refused pt due to eating disorder. 15. [facility] refused pt due to eating disorder.
[2024-03-07] MEDS: LORazepam 0.5 MG TABLET PO (13:42)
--- NOTE | 2024-03-07 13:43 | ED.NURSE ---
Pt reported feeling anxious, PRN Ativan was given.
--- NOTE | 2024-03-07 15:12 | ED_ITS ---
HPI - General Adult General Chief complaint: Psychiatric Problem/Disorder <Reno Hernandez MD - Last Filed: 03/10/24 07:57> Stated complaint: Suicidal ideation <Reno Hernandez MD - Last Filed: 03/10/24 07:57> Time Seen by Provider: 03/05/24 18:25 <Reno Hernandez MD - Last Filed: 03/10/24 07:57> Source: patient, family, RN notes reviewed and old records reviewed <Reno Hernandez MD - Last Filed: 03/10/24 07:57> Mode of arrival: ambulatory <Reno Hernandez MD - Last Filed: 03/10/24 07:57> Limitations: no limitations <Reno Hernandez MD - Last Filed: 03/10/24 07:57> History of Present Illness HPI narrative: Patient transferred to [facility] for [facility] suicidal ideation. <Tunde Galindo MD - Last Filed: 03/08/24 13:12> Related Data Home medications: Home Medications Medication Instructions Recorded Confirmed acetaminophen 325 mg tablet mg PO 03/05/24 fluoxetine 20 mg capsule 20 mg PO DAILY 03/05/24 03/05/24 ondansetron 4 mg disintegrating mg PO 03/05/24 tablet polyethylene glycol 3350 17 g PO 03/05/24 gram/dose oral powder vitamin with calcium tab PO 03/05/24 no.72-iron 27 mg-folic acid 1 mg tablet (M- Plus) simethicone 125 mg chewable tablet 125 mg PO 3XD 03/05/24 03/05/24 <Reno Hernandez MD - Last Filed: 03/10/24 07:57> Allergies/adverse reactions: Allergies Allergy/AdvReac Type Severity Reaction Status Date / Time No Known Drug Allergies Allergy Verified 03/05/24 18:06 <Reno Hernandez MD - Last Filed: 03/10/24 07:57> [facility] Social History: Social History Smoking Status: Never smoker Do you use any of these nicotine containing products: None Second hand tobacco smoke exposure: No How often do you have a drink containing alcohol: never AUDIT-C Alcohol total score: 0 Non-prescribed substance use: denies use <Reno Hernandez MD - Last Filed: 03/10/24 07:57> Exam Const: Vital Signs, click to edit/add: Vital Signs - 24 hr 03/07/24 23:35 03/08/24 05:03 Temperature 98.1 F Pulse Rate [Pulse Oximeter] 57 L 60 Respiratory Rate 16 16 Blood Pressure [Ri ght Upper Arm] 90/47 L 102/55 L Pulse Oximetry 97 97 Oxygen Delivery Me thod Room Air <Reno Hernandez MD - Last Filed: 03/10/24 07:57> Vital Signs, click to edit/add: Vital Signs - 24 hr 03/07/24 23:35 03/08/24 05:03 Temperature 98.1 F Pulse Rate [Pulse Oximeter] 57 L 60 Respiratory Rate 16 16 Blood Pressure [Ri ght Upper Arm] 90/47 L 102/55 L Pulse Oximetry 97 97 Oxygen Delivery Me thod Room Air <Tunde Galindo MD - Last Filed: 03/08/24 13:12> Course Vital Signs Vital signs: Initial Vital Signs Temperature 99.9 F H 03/05/24 17:56 Temperature Source Temporal Artery Scan 03/05/24 17:56 Pulse Rate 78 03/05/24 17:56 Respiratory Rate 16 03/05/24 17:56 Blood Pressure 112/71 03/05/24 17:56 Blood Pressure Mean 84 03/05/24 17:56 Blood Pressure Position Sitting 03/05/24 17:56 Pulse Oximetry 98 03/05/24 17:56 Oxygen Delivery Method Room Air 03/05/24 17:56 Vital Signs Temperature 99.9 F H 03/05/24 17:56 Pulse Rate 78 03/05/24 17:56 Respiratory Rate 16 03/05/24 17:56 Blood Pressure 112/71 03/05/24 17:56 Pulse Oximetry 98 03/05/24 17:56 Oxygen Delivery Method Room Air 03/05/24 17:56 Temperature 97.3 F L 03/08/24 14:00 Pulse Rate 60 03/08/24 14:00 Respiratory Rate 12 03/08/24 14:00 Blood Pressure 116/63 03/08/24 14:00 Pulse Oximetry 97 03/08/24 05:03 Oxygen Delivery Method Room Air 03/08/24 05:03 <Reno Hernandez MD - Last Filed: 03/10/24 07:57> Initial Vital Signs Temperature 99.9 F H 03/05/24 17:56 Temperature Source Temporal Artery Scan 03/05/24 17:56 Pulse Rate 78 03/05/24 17:56 Respiratory Rate 16 03/05/24 17:56 Blood Pressure 112/71 03/05/24 17:56 Blood Pressure Mean 84 03/05/24 17:56 Blood Pressure Position Sitting 03/05/24 17:56 Pulse Oximetry 98 03/05/24 17:56 Oxygen Delivery Method Room Air 03/05/24 17:56 Vital Signs Temperature 99.9 F H 03/05/24 17:56 Pulse Rate 78 03/05/24 17:56 Respiratory Rate 16 03/05/24 17:56 Blood Pressure 112/71 03/05/24 17:56 Pulse Oximetry 98 03/05/24 17:56 Oxygen Delivery Method Room Air 03/05/24 17:56 Temperature 97.3 F L 03/08/24 14:00 Pulse Rate 60 03/08/24 14:00 Respiratory Rate 12 03/08/24 14:00 Blood Pressure 116/63 03/08/24 14:00 Pulse Oximetry 97 03/08/24 05:03 Oxygen Delivery Method Room Air 03/08/24 05:03 <Tunde Galindo MD - Last Filed: 03/08/24 13:12> Medications Administered Medications: Discontinued Medications Generic Name Dose Route Start Last Admin Trade Name Luis Alberto PRN Reason Stop Dose Admin Cephalexin HCl 500 mg 03/05/24 18:53 03/05/24 19:03 Cephalexin 500 Mg Capsule PO 03/05/24 18:54 500 mg ONCE ONE Administration Cephalexin HCl 500 mg 03/06/24 09:00 03/08/24 09:12 Cephalexin 500 Mg Capsule PO 500 mg TID RUSS Administration Fluoxetine HCl 20 mg 03/06/24 09:00 03/08/24 09:12 Fluoxetine Hcl 20 Mg Capsule PO 20 mg DAILY RUSS Administration Lorazepam 1 mg 03/05/24 20:25 03/05/24 20:32 Lorazepam 1 Mg Tablet PO 03/05/24 20:26 1 mg ONCE ONE Administration Lorazepam 0.5 mg 03/06/24 08:50 03/07/24 13:42 Lorazepam 0.5 Mg Tablet PO 0.5 mg Q4H PRN Administration <Reno Hernandez MD - Last Filed: 03/10/24 07:57> Discontinued Medications Generic Name Dose Route Start Last Admin Trade Name Freq PRN Reason Stop Dose Admin Cephalexin HCl 500 mg 03/05/24 18:53 03/05/24 19:03 Cephalexin 500 Mg Capsule PO 03/05/24 18:54 500 mg ONCE ONE Administration Cephalexin HCl 500 mg 03/06/24 09:00 03/08/24 09:12 Cephalexin 500 Mg Capsule PO 500 mg TID RUSS Administration Fluoxetine HCl 20 mg 03/06/24 09:00 03/08/24 09:12 Fluoxetine Hcl 20 Mg Capsule PO 20 mg DAILY RUSS Administration Lorazepam 1 mg 03/05/24 20:25 03/05/24 20:32 Lorazepam 1 Mg Tablet PO 03/05/24 20:26 1 mg ONCE ONE Administration Lorazepam 0.5 mg 03/06/24 08:50 03/07/24 13:42 Lorazepam 0.5 Mg Tablet PO 0.5 mg Q4H PRN Administration <Tunde Galindo MD - Last Filed: 03/08/24 13:12> Medical Decision Making MDM Narrative Medical decision making narrative: Patient is a 24-year-old female has been hospitalized in the ER for a good period of time. She had a history of an eating disorder but she completed adequate treatment at a eating disorder facility and has been discharged from there. She now is suffering from some mental health issues with depression and suicidal ideation and some planning. Tele health mental assessment is occurred and they felt that she needs inpatient care regarding her mental health, and not regarding any other medical history. She has been stable in the ER, cooperative, been eating and drinking adequately. Does not demonstrate any difficulties with eating or eating problem. The patient has no other c omplaints. The last telehealth assessment was last night and they felt she did still need inpatient criteria for mental health. As a physician in the ER I think right now she is very stable in terms of her chronic medical issues and does have an acute need for inpatient mental health care. Will continue to have her social service people contact mental health facilities hopefully they will address her mental health. <Reno Hernandez MD - Last Filed: 04/13/24 07:57> Lab Data Labs: Lab Results 03/05/24 03/05/24 03/06/24 Range/Units 18:57 19:00 02:05 WBC 6.35 (4.50-11.00) K/uL RBC 4.30 (4.00-5.20) m/uL Hgb 13.0 (12.0-16.0) gm/dL Hct 38.3 (33.0-51.0) % MCV 89 (80-100) fL MCH 30 (26-34) pg MCHC 34 (32-36) gm/dL RDW Coeff of Anel 12.6 (11.5-15.5) % Plt Count 206 (140-440) K/uL Neut % (Auto) 54.4 (42.0-72.0) % Lymph % (Auto) 34.0 (20-44) % [place] % (Auto) 9.0 (0.0-11.0) % Eos % (Auto) 1.6 (0.0-7.0) % Baso % (Auto) 0.8 (0.0-3.0) % Neut # (Auto) 3.46 (1.7-7.0) K/uL Lymph # (Auto) 2.16 (0.90-2.90) K/uL [place] # (Auto) 0.60 (0.00-0.90) K/UL Eos # (Auto) 0.10 (0.00-0.50) K/uL Baso # (Auto) 0.05 (0.00-0.30) K/uL Abs Immat Gran (auto) 0.01 (0.00-0.30) K/uL Imm/Tot Granulo (auto) 0.2 % Sodium 138 (135-149) mmol/L Potassium 3.9 (3.6-5.1) mmol/L Chloride 105 (96-114) mmol/L Carbon Dioxide 24 (20-32) mmol/L Anion Gap 9 (7-15) mEq/L BUN 12 (5-24) mg/dL Creatinine 0.6 (0.5-1.5) mg/dL Estimated Creat Clear 144.28 Estimated GFR 130 ml/min Glucose 95 (60-115) mg/dL Calcium 9.8 (8.4-10.6) mg/dL Magnesium 2.2 (1.5-2.6) mg/dL Total Bilirubin 0.4 (0.1-1.5) mg/dL AST 22 (12-35) U/L ALT 10 (4-35) U/L Alkaline Phosphatase 48 (40-150) U/L C-Reactive Protein < 0.5 L (0.5-1.0) mg/dL Total Protein 8.1 (6.0-8.3) g/dL Albumin 4.7 (3.3-5.0) g/dL 25-OH Vitamin D Total 32 (30-80) ng/mL TSH 2.700 (0.270-4.200) uIU/mL Urine Color Yellow (Yellow) Urine Appearance Clear (Clear) Urine pH 7.0 (5.0-8.5) Ur Specific Mck[place] 1.010 (1.000-1.030) Urine Protein Negative (Negative) Urine Glucose (UA) Negative (Negative) Urine Ketones Negative (Negative) Urine Blood Negative (Negative) Urine Nitrite Negative (Negative) Urine Bilirubin Negative (Negative) Urine Urobilinogen 0.2 (0.2-1.0) Ur Leukocyte Esterase 2+ A (Negative) Urine RBC 0-2 (0-2) Urine WBC 2-5 (0-5) Ur Squamous Epith Cells Moderate A (None-Few) Urine Bacteria Moderate A (None) Urine HCG, Qual Negative (Negative) Salicylates < 1.0 L (1.0-10) mg/dL Urine Opiates Screen Negative (Negative) Ur Oxycodone Screen Negative (Negative) Urine Methadone Screen Negative (Negative) Acetaminophen < 10.0 L (10.0-30.0) ug/mL Ur Barbiturates Screen Negative (Negative) U Tricyclic Antidepress Negative (Negative) Ur Phencyclidine Scrn Negative (Negative) Ur Amphetamines Screen Negative (Negative) U Methamphetamines Scrn Negative (Negative) U Benzodiazepines Scrn Negative (Negative) Urine Cocaine Screen Negative (Negative) U Marijuana (THC) Screen Negative (Negative) Ur Drug Screen Comment See Note Ethyl Alcohol < 0.01 L (0.01-0.03) % SARS-CoV-2 (PCR) Negative SARS-CoV-2 (Negative) <Reno Hernandez MD - Last Filed: 03/10/24 07:57> Lab Results 03/05/24 03/05/24 03/06/24 Range/Units 18:57 19:00 02:05 WBC 6.35 (4.50-11.00) K/uL RBC 4.30 (4.00-5.20) m/uL Hgb 13.0 (12.0-16.0) gm/dL Hct 38.3 (33.0-51.0) % MCV 89 (80-100) fL MCH 30 (26-34) pg MCHC 34 (32-36) gm/dL RDW Coeff of Anel 12.6 (11.5-15.5) % Plt Count 206 (140-440) K/uL Neut % (Auto) 54.4 (42.0-72.0) % Lymph % (Auto) 34.0 (20-44) % [place] % (Auto) 9.0 (0.0-11.0) % Eos % (Auto) 1.6 (0.0-7.0) % Baso % (Auto) 0.8 (0.0-3.0) % Neut # (Auto) 3.46 (1.7-7.0) K/uL Lymph # (Auto) 2.16 (0.90-2.90) K/uL [place] # (Auto) 0.60 (0.00-0.90) K/UL Eos # (Auto) 0.10 (0.00-0.50) K/uL Baso # (Auto) 0.05 (0.00-0.30) K/uL Abs Immat Gran (auto) 0.01 (0.00-0.30) K/uL Imm/Tot Granulo (auto) 0.2 % Sodium 138 (135-149) mmol/L Potassium 3.9 (3.6-5.1) mmol/L Chloride 105 (96-114) mmol/L Carbon Dioxide 24 (20-32) mmol/L Anion Gap 9 (7-15) mEq/L BUN 12 (5-24) mg/dL Creatinine 0.6 (0.5-1.5) mg/dL Estimated Creat Clear 144.28 Estimated GFR 130 ml/min Glucose 95 (60-115) mg/dL Calcium 9.8 (8.4-10.6) mg/dL Magnesium 2.2 (1.5-2.6) mg/dL Total Bilirubin 0.4 (0.1-1.5) mg/dL AST 22 (12-35) U/L ALT 10 (4-35) U/L Alkaline Phosphatase 48 (40-150) U/L C-Reactive Protein < 0.5 L (0.5-1.0) mg/dL Total Protein 8.1 (6.0-8.3) g/dL Albumin 4.7 (3.3-5.0) g/dL 25-OH Vitamin D Total 32 (30-80) ng/mL TSH 2.700 (0.270-4.200) uIU/mL Urine Color Yellow (Yellow) Urine Appearance Clear (Clear) Urine pH 7.0 (5.0-8.5) Ur Specific [place] 1.010 (1.000-1.030) Urine Protein Negative (Negative) Urine Glucose (UA) Negative (Negative) Urine Ketones Negative (Negative) Urine Blood Negative (Negative) Urine Nitrite Negative (Negative) Urine Bilirubin Negative (Negative) Urine Urobilinogen 0.2 (0.2-1.0) Ur Leukocyte Esterase 2+ A (Negative) Urine RBC 0-2 (0-2) Urine WBC 2-5 (0-5) Ur Squamous Epith Cells Moderate A (None-Few) Urine Bacteria Moderate A (None) Urine HCG, Qual Negative (Negative) Salicylates < 1.0 L (1.0-10) mg/dL Urine Opiates Screen Negative (Negative) Ur Oxycodone Screen Negative (Negative) Urine Methadone Screen Negative (Negative) Acetaminophen < 10.0 L (10.0-30.0) ug/mL Ur Barbiturates Screen Negative (Negative) U Tricyclic Antidepress Negative (Negative) Ur Phencyclidine Scrn Negative (Negative) Ur Amphetamines Screen Negative (Negative) U Methamphetamines Scrn Negative (Negative) U Benzodiazepines Scrn Negative (Negative) Urine Cocaine Screen Negative (Negative) U Marijuana (THC) Screen Negative (Negative) Ur Drug Screen Comment See Note Ethyl Alcohol < 0.01 L (0.01-0.03) % SARS-CoV-2 (PCR) Negative SARS-CoV-2 (Negative) <Tunde Galindo MD - Last Filed: 03/08/24 13:12> Discharge Plan Discharge Clinical Impression: Suicidal ideation <Reno Hernandez MD - Last Filed: 03/10/24 07:57> Condition: Stable <Reno Hernandez MD - Last Filed: 03/10/24 07:57> Prescriptions: No Action acetaminophen 325 mg tablet PO simethicone 125 mg tablet,chewable 125 mg PO 3XD polyethylene glycol 3350 17 gram/dose powder PO ondansetron 4 mg tablet,disintegrating PO fluoxetine 20 mg capsule 20 mg PO DAILY M-Prashant Plus 27 mg iron- 1 mg tablet PO <Reno Hernandez MD - Last Filed: 03/10/24 07:57> Follow Up/Referrals: Marjan Neumann DO [Referring] - <Reno Hernandez MD - Last Filed: 03/10/24 07:57>
--- NOTE | 2024-03-07 15:22 | ED.NURSE ---
pt ate 100% of lunch tray.
--- NOTE | 2024-03-07 16:24 | ED.NURSE ---
Patient's sister has arrived to visit. She is planning to bring in some clean underware and socks with some books and adult coloring books. Sister has been updated that social worker school will return tomorrow to assist with finding BH placement.
[2024-03-07 23:35] VITALS: BP 90/47; PULSE 57; RESP 16; O2SAT 97
[2024-03-08 05:03] VITALS: BP 102/55; PULSE 60; RESP 16; TEMP 36.7; O2SAT 97
[2024-03-08] MEDS: FLUOXETINE HCL 20 MG CAPSULE PO (09:12)
[2024-03-08] MEDS: cephALEXin 500 MG CAPSULE PO (09:12)
--- NOTE | 2024-03-08 11:43 | PC.SOCIAL ---
Discharge planning: REceived call from [facility] in [place] [phone]. Faxed ([phone]) requested updated notes and labs to them for evaluation for a bed available today. Awaiting call back with decision on admit. warehouse production worker to follow up as needed.
[2024-03-08 14:00] VITALS: BP 116/63; PULSE 60; RESP 12; TEMP 36.3
--- NOTE | 2024-03-08 14:26 | ED.NURSE ---
Patient transferred via [facility] with all belongings. Nurse report was called to inpatient nurse. Patient was able to contact her sister prior to transfer to give her an update.
== END 2024-03-08 14:34 | disposition short-term general hospital (02) ==
PROVIDERS: Family Medicine; Emergency Provider Family Medicine
DX: R45.851 Suicidal ideations (principal); F50.9 Eating disorder, unspecified; F84.0 Autistic disorder
CPT/HCPCS: 36415; 80053; 80143; 80179; 80306; 81001; 81025; 82077; 82306; 83735; 84443; 85025; 86140; 87070; 87086; 87186; 87635; 99284; 99285; A9270

== ENCOUNTER 2024-03-08 14:03 | Outpatient (CLI) | payer BC, SELFPAY | END 2024-03-08 14:04 | disposition home or self-care (01) | LOC: AMB 03-15 22:37 | PROVIDERS: Visit Provider Internal Medicine | DX: R45.851 Suicidal ideations (principal) | CPT/HCPCS: A0425; A0428 ==

== ENCOUNTER 2024-05-06 13:12 | Emergency (ER) | payer BC, MEDICAID, SELFPAY ==
[2024-05-06 13:34] VITALS: BP 124/79; PULSE 63; RESP 20; TEMP 36.9; O2SAT 97; BMI 21.1
--- NOTE | 2024-05-06 13:53 | ED_ITS ---
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 ml/min Glucose (60-115) mg/dL Calcium (8.4-10.6) mg/dL Total Bilirubin (0.1-1.5) mg/dL AST (12-35) U/L ALT (4-35) U/L Alkaline Phosphatase (40-150) U/L Total Protein (6.0-8.3) g/dL Albumin (3.3-5.0) g/dL TSH (0.270-4.200) uIU/mL Urine Color (Yellow) Urine Appearance (Clear) Urine pH (5.0-8.5) Ur Specific [place] (1.000-1.030) Urine Protein (Negative) Urine Glucose (UA) (Negative) Urine Ketones (Negative) Urine Blood (Negative) Urine Nitrite (Negative) Urine Bilirubin (Negative) Urine Urobilinogen (0.2-1.0) Ur Leukocyte Esterase (Negative) Urine RBC (0-2) Urine WBC (0-5) Ur Squamous Epith Cells (None-Few) Urine Bacteria (None) Urine HCG, Qual (Negative) Salicylates (1.0-10) mg/dL Urine Opiates Screen (Negative) Ur Oxycodone Screen (Negative) Urine Methadone Screen (Negative) Acetaminophen (10.0-30.0) ug/mL Ur Barbiturates Screen (Negative) U Tricyclic Antidepress (Negative) Ur Phencyclidine Scrn (Negative) Ur Amphetamines Screen (Negative) U Methamphetamines Scrn (Negative) U Benzodiazepines Scrn (Negative) Urine Cocaine Screen (Negative) U Marijuana (THC) Screen (Negative) Ur Drug Screen Comment Ethyl Alcohol (0.01-0.03) % SARS-CoV-2 (PCR) POSITIVE SARS-CoV-2 A (Negative) <Anel Nation MD - Last Filed: 05/08/24 08:02> Lab Results 05/06/24 05/06/24 05/06/24 Range/Units 15:25 16:15 17:12 WBC 7.68 (4.50-11.00) K/uL RBC 4.48 (4.00-5.20) m/uL Hgb 13.5 (12.0-16.0) gm/dL Hct 41.2 (33.0-51.0) % MCV 92 (80-100) fL MCH 30 (26-34) pg MCHC 33 (32-36) gm/dL RDW Coeff of Anel 12.2 (11.5-15.5) % Plt Count 245 (140-440) K/uL Neut % (Auto) 69.1 (42.0-72.0) % Lymph % (Auto) 23.0 (20-44) % Lipscomb % (Auto) 5.2 (0.0-11.0) % Eos % (Auto) 2.1 (0.0-7.0) % Baso % (Auto) 0.5 (0.0-3.0) % Neut # (Auto) 5.30 (1.7-7.0) K/uL Lymph # (Auto) 1.77 (0.90-2.90) K/uL Lipscomb # (Auto) 0.40 (0.00-0.90) K/UL Eos # (Auto) 0.16 (0.00-0.50) K/uL Baso # (Auto) 0.04 (0.00-0.30) K/uL Abs Immat Gran (auto) 0.01 (0.00-0.30) K/uL Imm/Tot Granulo (auto) 0.1 % Sodium 140 (135-149) mmol/L Potassium 4.2 (3.6-5.1) mmol/L Chloride 104 (96-114) mmol/L Carbon Dioxide 29 (20-32) mmol/L Anion Gap 7 (7-15) mEq/L BUN 8 (5-24) mg/dL Creatinine 0.6 (0.5-1.5) mg/dL Estimated Creat Clear 146.38 Estimated GFR 130 ml/min Glucose 87 (60-115) mg/dL Calcium 9.9 (8.4-10.6) mg/dL Total Bilirubin 0.8 (0.1-1.5) mg/dL AST 24 (12-35) U/L ALT 11 (4-35) U/L Alkaline Phosphatase 54 (40-150) U/L Total Protein 8.6 H (6.0-8.3) g/dL Albumin 5.1 H (3.3-5.0) g/dL TSH 1.720 (0.270-4.200) uIU/mL Urine Color Yellow (Yellow) Urine Appearance Clear (Clear) Urine pH 6.5 (5.0-8.5) Ur Specific [place] 1.020 (1.000-1.030) Urine Protein Negative (Negative) Urine Glucose (UA) Negative (Negative) Urine Ketones Negative (Negative) Urine Blood Negative (Negative) Urine Nitrite Negative (Negative) Urine Bilirubin Negative (Negative) Urine Urobilinogen 0.2 (0.2-1.0) Ur Leukocyte Esterase Negative (Negative) Urine RBC 0-2 (0-2) Urine WBC 0-2 (0-5) Ur Squamous Epith Cells Few (None-Few) Urine Bacteria Few A (None) Urine HCG, Qual Negative (Negative) Salicylates < 1.0 L (1.0-10) mg/dL Urine Opiates Screen Negative (Negative) Ur Oxycodone Screen Negative (Negative) Urine Methadone Screen Negative (Negative) Acetaminophen < 10.0 L (10.0-30.0) ug/mL Ur Barbiturates Screen Negative (Negative) U Tricyclic Antidepress Negative (Negative) Ur Phencyclidine Scrn Negative (Negative) Ur Amphetamines Screen Negative (Negative) U Methamphetamines Scrn Negative (Negative) U Benzodiazepines Scrn Negative (Negative) Urine Cocaine Screen Negative (Negative) U Marijuana (THC) Screen Negative (Negative) Ur Drug Screen Comment See Note Ethyl Alcohol < 0.01 L (0.01-0.03) % SARS-CoV-2 (PCR) (Negative) 05/06/24 Range/Units 19:15 WBC (4.50-11.00) K/uL RBC (4.00-5.20) m/uL Hgb (12.0-16.0) gm/dL Hct (33.0-51.0) % MCV (80-100) fL MCH (26-34) pg MCHC (32-36) gm/dL RDW Coeff of Anel (11.5-15.5) % Plt Count (140-440) K/uL Neut % (Auto) (42.0-72.0) % Lymph % (Auto) (20-44) % Lipscomb % (Auto) (0.0-11.0) % Eos % (Auto) (0.0-7.0) % Baso % (Auto) (0.0-3.0) % Neut # (Auto) (1.7-7.0) K/uL Lymph # (Auto) (0.90-2.90) K/uL Lipscomb # (Auto) (0.00-0.90) K/UL Eos # (Auto) (0.00-0.50) K/uL Baso # (Auto) (0.00-0.30) K/uL Abs Immat Gran (auto) (0.00-0.30) K/uL Imm/Tot Granulo (auto) % Sodium (135-149) mmol/L Potassium (3.6-5.1) mmol/L Chloride (96-114) mmol/L Carbon Dioxide (20-32) mmol/L Anion Gap (7-15) mEq/L BUN (5-24) mg/dL Creatinine (0.5-1.5) mg/dL Estimated Creat Clear Estimated GFR ml/min Glucose (60-115) mg/dL Calcium (8.4-10.6) mg/dL Total Bilirubin (0.1-1.5) mg/dL AST (12-35) U/L ALT (4-35) U/L Alkaline Phosphatase (40-150) U/L Total Protein (6.0-8.3) g/dL Albumin (3.3-5.0) g/dL TSH (0.270-4.200) uIU/mL Urine Color (Yellow) Urine Appearance (Clear) Urine pH (5.0-8.5) Ur Specific [place] (1.000-1.030) Urine Protein (Negative) Urine Glucose (UA) (Negative) Urine Ketones (Negative) Urine Blood (Negative) Urine Nitrite (Negative) Urine Bilirubin (Negative) Urine Urobilinogen (0.2-1.0) Ur Leukocyte Esterase (Negative) Urine RBC (0-2) Urine WBC (0-5) Ur Squamous Epith Cells (None-Few) Urine Bacteria (None) Urine HCG, Qual (Negative) Salicylates (1.0-10) mg/dL Urine Opiates Screen (Negative) Ur Oxycodone Screen (Negative) Urine Methadone Screen (Negative) Acetaminophen (10.0-30.0) ug/mL Ur Barbiturates Screen (Negative) U Tricyclic Antidepress (Negative) Ur Phencyclidine Scrn (Negative) Ur Amphetamines Screen (Negative) U Methamphetamines Scrn (Negative) U Benzodiazepines Scrn (Negative) Urine Cocaine Screen (Negative) U Marijuana (THC) Screen (Negative) Ur Drug Screen Comment Ethyl Alcohol (0.01-0.03) % SARS-CoV-2 (PCR) POSITIVE SARS-CoV-2 A (Negative) <Keren Valiente MD - Last Filed: 05/09/24 00:35> Lab Results 05/06/24 05/06/24 05/06/24 Range/Units 15:25 16:15 17:12 WBC 7.68 (4.50-11.00) K/uL RBC 4.48 (4.00-5.20) m/uL Hgb 13.5 (12.0-16.0) gm/dL Hct 41.2 (33.0-51.0) % MCV 92 (80-100) fL MCH 30 (26-34) pg MCHC 33 (32-36) gm/dL RDW Coeff of Anel 12.2 (11.5-15.5) % Plt Count 245 (140-440) K/uL Neut % (Auto) 69.1 (42.0-72.0) % Lymph % (Auto) 23.0 (20-44) % Lipscomb % (Auto) 5.2 (0.0-11.0) % Eos % (Auto) 2.1 (0.0-7.0) % Baso % (Auto) 0.5 (0.0-3.0) % Neut # (Auto) 5.30 (1.7-7.0) K/uL Lymph # (Auto) 1.77 (0.90-2.90) K/uL Lipscomb # (Auto) 0.40 (0.00-0.90) K/UL Eos # (Auto) 0.16 (0.00-0.50) K/uL Baso # (Auto) 0.04 (0.00-0.30) K/uL Abs Immat Gran (auto) 0.01 (0.00-0.30) K/uL Imm/Tot Granulo (auto) 0.1 % Sodium 140 (135-149) mmol/L Potassium 4.2 (3.6-5.1) mmol/L Chloride 104 (96-114) mmol/L Carbon Dioxide 29 (20-32) mmol/L Anion Gap 7 (7-15) mEq/L BUN 8 (5-24) mg/dL Creatinine 0.6 (0.5-1.5) mg/dL Estimated Creat Clear 146.38 Estimated GFR 130 ml/min Glucose 87 (60-115) mg/dL Calcium 9.9 (8.4-10.6) mg/dL Total Bilirubin 0.8 (0.1-1.5) mg/dL AST 24 (12-35) U/L ALT 11 (4-35) U/L Alkaline Phosphatase 54 (40-150) U/L Total Protein 8.6 H (6.0-8.3) g/dL Albumin 5.1 H (3.3-5.0) g/dL TSH 1.720 (0.270-4.200) uIU/mL Urine Color Yellow (Yellow) Urine Appearance Clear (Clear) Urine pH 6.5 (5.0-8.5) Ur Specific [place] 1.020 (1.000-1.030) Urine Protein Negative (Negative) Urine Glucose (UA) Negative (Negative) Urine Ketones Negative (Negative) Urine Blood Negative (Negative) Urine Nitrite Negative (Negative) Urine Bilirubin Negative (Negative) Urine Urobilinogen 0.2 (0.2-1.0) Ur Leukocyte Esterase Negative (Negative) Urine RBC 0-2 (0-2) Urine WBC 0-2 (0-5) Ur Squamous Epith Cells Few (None-Few) Urine Bacteria Few A (None) Urine HCG, Qual Negative (Negative) Salicylates < 1.0 L (1.0-10) mg/dL Urine Opiates Screen Negative (Negative) Ur Oxycodone Screen Negative (Negative) Urine Methadone Screen Negative (Negative) Acetaminophen < 10.0 L (10.0-30.0) ug/mL Ur Barbiturates Screen Negative (Negative) U Tricyclic Antidepress Negative (Negative) Ur Phencyclidine Scrn Negative (Negative) Ur Amphetamines Screen Negative (Negative) U Methamphetamines Scrn Negative (Negative) U Benzodiazepines Scrn Negative (Negative) Urine Cocaine Screen Negative (Negative) U Marijuana (THC) Screen Negative (Negative) Ur Drug Screen Comment See Note Ethyl Alcohol < 0.01 L (0.01-0.03) % SARS-CoV-2 (PCR) (Negative) 05/06/24 Range/Units 19:15 WBC (4.50-11.00) K/uL RBC (4.00-5.20) m/uL Hgb (12.0-16.0) gm/dL Hct (33.0-51.0) % MCV (80-100) fL MCH (26-34) pg MCHC (32-36) gm/dL RDW Coeff of Anel (11.5-15.5) % Plt Count (140-440) K/uL Neut % (Auto) (42.0-72.0) % Lymph % (Auto) (20-44) % Lipscomb % (Auto) (0.0-11.0) % Eos % (Auto) (0.0-7.0) % Baso % (Auto) (0.0-3.0) % Neut # (Auto) (1.7-7.0) K/uL Lymph # (Auto) (0.90-2.90) K/uL Lipscomb # (Auto) (0.00-0.90) K/UL Eos # (Auto) (0.00-0.50) K/uL Baso # (Auto) (0.00-0.30) K/uL Abs Immat Gran (auto) (0.00-0.30) K/uL Imm/Tot Granulo (auto) % Sodium (135-149) mmol/L Potassium (3.6-5.1) mmol/L Chloride (96-114) mmol/L Carbon Dioxide (20-32) mmol/L Anion Gap (7-15) mEq/L BUN (5-24) mg/dL Creatinine (0.5-1.5) mg/dL Estimated Creat Clear Estimated GFR ml/min Glucose (60-115) mg/dL Calcium (8.4-10.6) mg/dL Total Bilirubin (0.1-1.5) mg/dL AST (12-35) U/L ALT (4-35) U/L Alkaline Phosphatase (40-150) U/L Total Protein (6.0-8.3) g/dL Albumin (3.3-5.0) g/dL TSH (0.270-4.200) uIU/mL Urine Color (Yellow) Urine Appearance (Clear) Urine pH (5.0-8.5) Ur Specific [place] (1.000-1.030) Urine Protein (Negative) Urine Glucose (UA) (Negative) Urine Ketones (Negative) Urine Blood (Negative) Urine Nitrite (Negative) Urine Bilirubin (Negative) Urine Urobilinogen (0.2-1.0) Ur Leukocyte Esterase (Negative) Urine RBC (0-2) Urine WBC (0-5) Ur Squamous Epith Cells (None-Few) Urine Bacteria (None) Urine HCG, Qual (Negative) Salicylates (1.0-10) mg/dL Urine Opiates Screen (Negative) Ur Oxycodone Screen (Negative) Urine Methadone Screen (Negative) Acetaminophen (10.0-30.0) ug/mL Ur Barbiturates Screen (Negative) U Tricyclic Antidepress (Negative) Ur Phencyclidine Scrn (Negative) Ur Amphetamines Screen (Negative) U Methamphetamines Scrn (Negative) U Benzodiazepines Scrn (Negative) Urine Cocaine Screen (Negative) U Marijuana (THC) Screen (Negative) Ur Drug Screen Comment Ethyl Alcohol (0.01-0.03) % SARS-CoV-2 (PCR) POSITIVE SARS-CoV-2 A (Negative) <Kemi Alfred MD - Last Filed: 05/07/24 16:25> Discharge Plan Discharge Clinical Impression: Suicidal ideation <Anel Barrios MD - Last Filed: 05/06/24 16:44> Patient Disposition: Home w/ Parent or Adult <Anel Barrios MD - Last Filed: 05/06/24 16:44> Condition: Stable <Anel Barrios MD - Last Filed: 05/06/24 16:44> Instructions: Suicide Prevention (ED) <Anel Barrios MD - Last Filed: 05/06/24 16:44> Additional Instructions: Need to work with [facility] to get your casey saw operator. One thought is that a monitored living situation might benefit you, can work with [facility] on this once you have a family caseworker. Need to continue with your outpatient therapy appointments that you already have. If you feel that your becoming suicidal, have worsening mental health issues, please seek re-evaluation. You spoke with Lisa [phone] at [facility]ake, from the hospital today by phone. She will follow up with you regarding any mental health needs or questions until a [facility] Director is assigned. Feel free to reach out to her directly by phone. She can assist you with entry into a voluntary short term stay in an IRTS (Intensive Residential Treatment Services) in your area, if needed. <Anel Barrios MD - Last Filed: 05/06/24 16:44> Activity Level: Activity as Tolerated <Anel Barrios MD - Last Filed: 05/06/24 16:44> Activity as Tolerated <Anel Nation MD - Last Filed: 05/08/24 08:02> Activity as Tolerated <Keren Valiente MD - Last Filed: 05/09/24 00:35> Activity as Tolerated <Kemi Alfred MD - Last Filed: 05/07/24 16:25> Prescriptions: No Action acetaminophen 325 mg tablet PO simethicone 125 mg tablet,chewable 125 mg PO 3XD polyethylene glycol 3350 17 gram/dose powder PO ondansetron 4 mg tablet,disintegrating PO fluoxetine 20 mg capsule 20 mg PO DAILY M-Prashant Plus 27 mg iron- 1 mg tablet PO <Anel Barrios MD - Last Filed: 05/06/24 16:44> Follow Up/Referrals: Provider,Not a Local [Referring] - <Anel Barrios MD - Last Filed: 05/06/24 16:44> Stand Alone Forms: [employer] Info Instructions <Aenl Barrios MD - Last Filed: 05/06/24 16:44>
[2024-05-06 15:31] LABS: Basophils Absolute Auto 0.04 K/uL (0.00-0.30); Basophils Percent Auto 0.5 % (0.0-3.0); Eosinophils Absolute Auto 0.16 K/uL (0.00-0.50); Eosinophils Percent Auto 2.1 % (0.0-7.0); Hematocrit 41.2 % (33.0-51.0); Hemoglobin* 13.5 gm/dL (12.0-16.0); Immature Granulocytes Abs Auto 0.01 K/uL (0.00-0.30); Immature Granulocytes Pct Auto 0.1 %; Lymphocytes Absolute Auto 1.77 K/uL (0.90-2.90); Mean Corpuscular HGB Conc 33 gm/dL (32-36); Mean Corpuscular Hemoglobin 30 pg (26-34); Mean Corpuscular Volume 92 fL (80-100); Monocytes Percent Auto 5.2 % (0.0-11.0); Neutrophils Percent Auto 69.1 % (42.0-72.0); Platelet Count* 245 K/uL (140-440); RDW Coefficient of Variation % 12.2 % (11.5-15.5); Red Blood Count 4.48 m/uL (4.00-5.20); White Blood Count* 7.68 K/uL (4.50-11.00)
[2024-05-06 15:33] LABS: Slide Review Reflex No
[2024-05-06 15:50] LABS: Albumin* 5.1 g/dL (3.3-5.0); Chloride* 104 mmol/L (96-114); Potassium* 4.2 mmol/L (3.6-5.1); Sodium* 140 mmol/L (135-149)
[2024-05-06 15:52] LABS: Creatinine* 0.6 mg/dL (0.5-1.5); Est. Creatinine Clearance* 146.38; Estimated Glomerular Filt Rate 130 ml/min
[2024-05-06 15:53] LABS: Alanine Aminotransferase* 11 U/L (4-35); Alkaline Phosphatase* 54 U/L (40-150); Anion Gap 7 mEq/L (7-15); Aspartate Amino Transferase* 24 U/L (12-35); Bilirubin Total* 0.8 mg/dL (0.1-1.5); Blood Urea Nitrogen* 8 mg/dL (5-24); Calcium* 9.9 mg/dL (8.4-10.6); Carbon Dioxide* 29 mmol/L (20-32); Glucose* 87 mg/dL (60-115); Total Protein* 8.6 g/dL (6.0-8.3)
[2024-05-06 15:57] LABS: Acetaminophen* < 10.0 ug/mL (10.0-30.0); Salicylate* < 1.0 mg/dL (1.0-10)
[2024-05-06 16:45] LABS: Appearance Urine Clear (Clear); Bilirubin Urine Negative (Negative); Blood Urine Negative (Negative); Color Urine Yellow (Yellow); Glucose Urine Negative (Negative); Ketones Urine Negative (Negative); Leukocyte Esterase Urine Negative (Negative); Nitrite Urine Negative (Negative); Protein Urine Negative (Negative); Urobilinogen Urine 0.2 (0.2-1.0); pH Urine 6.5 (5.0-8.5)
[2024-05-06 16:46] LABS: Amphetamine Screen Urine Negative (Negative); Barbiturate Screen Urine Negative (Negative); Benzodiazepines Screen Urine Negative (Negative); Cannabinoid Screen Urine Negative (Negative); Cocaine Screen Urine Negative (Negative); Methadone Screen Urine Negative (Negative); Methamphetamines Screen Urine Negative (Negative); Opiate Screen Urine Negative (Negative); Oxycodone Screen Urine Negative (Negative); Phencyclidine Screen Urine Negative (Negative); Tricyclic Antidepressant Urine Negative (Negative); Ur HCG Qualitative* Negative (Negative)
[2024-05-06 16:57] LABS: Bacteria Urine Few; RBC Urine 0-2 (0-2); Squamous Epithelial Cell Urine Few (None-Few); WBC Urine 0-2 (0-5)
[2024-05-06] MEDS: hydrOXYzine pamoate 25 MG CAPSULE PO (18:03)
[2024-05-06 18:43] LABS: Ethanol* < 0.01 % (0.01-0.03)
[2024-05-06 20:20] VITALS: BP 118/93; PULSE 77; RESP 16; O2SAT 97
[2024-05-06] MEDS: LORazepam 1 MG TABLET PO (20:20)
[2024-05-06 20:27] LABS: SARS PCR* POSITIVE SARS-CoV-2 (Negative)
[2024-05-07 06:57] VITALS: PULSE 64; RESP 16; O2SAT 98
[2024-05-07 09:38] VITALS: BP 94/54; PULSE 48; O2SAT 99
--- NOTE | 2024-05-07 13:00 | PC.SOCIAL ---
Social work: DEC notes reviewed. Called Lory nelson [phone]. Sister is aware of possibility of discharge today and states she can pick her up at 4:00 today. Sister states she would rather have pt placed in an in-pt facility but that pt can stay with her at discharge which sister would prefer to pt being discharged to her own home alone. Sister shared that her concerns are regarding pt not taking care of herself, including not being consistent with her medications, not following her [employer] [facility] eating guidelines, and passively taking risks such as not using her seatbelt in the car. Sister shared that pt is lying to her about her eating, purging and medication management. Sister shared that she has found pieced of glass that patient has hidden and that pt has a history of cutting. Sister has also seen bruises on pt and shared that the patient is hitting herself. Sister shared that she is 27 years old and trying to assist pt as much as possible, but she is frustrated with the lack of resources and support from the [employer] high school social studies teacher. Sister is interested in pt living in a more supervised setting like supportive mental health housing and thinks pt would be open to this if it were offered. Sister states she has been trying to get pt mental health case management through [facility] but it has not happened yet. Sister received a message from a [facility] worker today, Gilberto in Adult Intake [phone]. Sister has called Gilberto and left a message but also requested hospital social science manager call Gilberto. Called and left message at sister's request, asking for a call back from Gliberto to Lory. cattle care worker to put together resources for sister and pt regarding housing and emergency crisis options and support in the community prior to discharge. was appreciative of the phone call and information provided.
--- NOTE | 2024-05-07 14:38 | ED.NURSE ---
Patient is speaking with Lisa from [facility] community mental health social worker for an assessment so the [facility] can provide resources as appropriate.
--- NOTE | 2024-05-07 14:49 | PC.SOCIAL ---
Addendum entered by DALI Nicolas 05/07/24 18:33: MAARC report made based on concerns expressed by sister. Report #[id number]. Original Note: Social work: Received call from [facility] fur floor worker, Lisa [phone], who called to screen and assess pt for ongoing case management services. Lisa stated she can assist in connecting pt with IRTS voluntary placement from the community or penitentiary settings where pt would have more support and supervision than at home. Per Cheyenne, the first step is to complete this assessment and they have been unable to reach pt by phone. Cheyenne confirmed that because pt has just been approved for Medical Assistance starting 04/28/24, she will be eligible for additional supportive services she was not eligible for prior to receiving Medical Assistance. Connected Cheyenne by portable phone with pt for conversation and assessment. Cheyenne will call back to the hospital if additional information or connection with pt is needed. Received phone call from pt's sister, confirming she will pick pt up at 4:00 today. She is aware and pleased that pt is speaking with [facility] fur floor worker. Contact information for that worker will be added to discharge information.
[2024-05-07 16:15] VITALS: BP 104/71; PULSE 61; RESP 14; TEMP 36.2; O2SAT 99
== END 2024-05-07 16:31 | disposition home or self-care (01) ==
PROVIDERS: Emergency Medicine; Family Medicine; Emergency Provider Family Medicine; PCP Physician Assistant
DX: R45.851 Suicidal ideations (principal)
CPT/HCPCS: 36415; 80053; 80143; 80179; 80306; 81001; 81025; 82077; 84443; 85025; 87086; 87426; 87635; 99283; 99284; A9270

== ENCOUNTER 2024-11-17 19:35 | Emergency (ER) | payer MEDICAID, SELFPAY ==
--- OUTSIDE RECORDS SUMMARY | 2024-11-17 19:37 | XMS_ITS | Continuity of Care Document ---
Author Organization [facility] Address [address] [place] [address] Phone Care Team Providers Care Biology Faculty Member Name Role Phone DO Loree Vallecillo Attending Provider DO Loree Vallecillo Other Provider [phone] ZAK Roth Jason D Attending Provider Care Teams Visit Care Team Team Status: Inactive Member Role Status Dates Loree Vallecillo DO Admit Provide r, Attending Provider Active Start: March 08, 2024 End: March 12, 2024 Visit Care Team Team Status: Active Member Role Status Dates Loree Vallecillo DO Admit Provide r, Other Provider Active Start: March 09, 2024 Linden Roth APRN, YANNI Attending Provider Active Start: March 09, 2024 Chief Complaint and Reason for Visit Reason for Visit Suicidal ideation Health Concerns Concerns Review problems and other do cumentation throughout for Health Concerns. Allergies, Adverse Reactions, Alerts No known allergies Social History Smoking Status Status Start Date End Date Date of Observa tion Never smoked tobacco (finding) March 08, 2024 5:18pm Additional Data Assigned Sex Female Problems Active Problems Medical Problem Onset Date Status Suicidal ideation Active Medications Medication Status Dose Units Route Directions Qty Days St art Date End Date Instructions Acetaminophen Discontin ued 650 MG PO Three times per day March 08, 2024 12:00a m March 12, 2024 4:23pm Cephalexin Discontin ued 500 MG PO Three times per day March 08, 2024 12:00a m March 12, 2024 10:43a m Simethicone Active 125 MG PO Three ti mes daily with meals March 08, 2024 12:00a m Polyethylene Glycol 3350 Active 17 GM PO Two times per day March 08, 2024 12:00a m Ondansetron Active 4 MG PO Q8H March 08, 2024 12:00a m Fluoxetine Discontin ued 20 MG PO Daily March 08, 2024 12:00a m March 12, 2024 4:23pm Pnv,Calcium 00-Mujn-Zyyad Acid (M-Prashant Plus) 27 mg iron- 1 mg tablet Active 1 TAB PO Daily March 08, 2024 12:00a m Hydroxyzine Hcl Active 50 MG PO Three times per day 60 March 12, 2024 12:00a m Propranolol Active 10 MG PO Three ti mes per day 60 March 12, 2024 12:00a m Cephalexin Active 500 MG PO Three fernanda es per day 5 March 12, 2024 10:43a m Fluoxetine Active 20 MG PO Daily 30 March 12, 2024 10:43a m Vital Signs Vital Reading Result Reference Range Collection Date/Time Height 172.72 cm March 11 8:28pm Weight 59.05 kg March 11 8:28pm Body Temperature 36.7 Tri 36.4-37.6 March 12, 2024 8:49am Heart Rate 75 /min 60-100 March 12 10:13am Respiratory rate 16 /min 12-20 March 12, 2024 8:49am Oxygen saturation by Pulse oximetry 100 % 88-100 March 12, 2024 10: 13am BP Systolic 106 mm[Hg] 95-130 March 12 10:13am BP Diastolic 71 mm[Hg] 55-80 March 12 10:13am BMI (Body Mass Index) 19.8 kg/m2 March 12, 2024 9:45am Insurance Providers Guarantor Lindsey Chandra Address [address] [place] [address] Contact Info. Home Phone: Payer Policy Id Coverage Id Subscriber's Name Subscriber Id Effective Date Expiration Date [facility] [id number] Lindsey Chandra [id number] Encounters Encounter Location(s) Arrival/Admit Date Discharge/Depart Date Provider(s) Discharged Inpatient [address] March 08, 2024 5:11pm March 12, 2024 4:40pm Loree Vallecillo DO Non-patient / Non-visit [facility] March 09, 2024 4:22pm CLOTH CARRIER YANNI Linden Roth Recent Diagnosis Onset Date Suicidal ideation Functional Status Observation Response Date Recorded Feeding Independent Self Cares February 4:24pm Dressing Independent Self Cares February 4:24pm Toileting Independent Self Cares February 4:24pm Bathing Independent Self Cares February 4:24pm Transferring Independent Self Cares February 4:24pm Ambulating Independent Self Cares February 4:24pm Stair Climbing Independent Self Cares February 4:24pm Assessments Diagnosis Onset Date Resolution Status Suicidal ideation acute Plan of Treatment Future Tests Future scheduled test information is unavailable Pending Tests Pending diagnostic test information is unavailable Future Visits Future appointment information is unavailable Referrals to Other Providers Referral information is unavailable Future Procedures Procedure Name Ordered Date Scheduled Date Admit as Inpatient March 08, 2024 2:55pm March 08, 2024 5:34pm Discharge Order March 12, 2024 10:41am February 262023 12:00am Discharge Follow-up Psychiatry March 12, 2024 10:41am March 12, 2024 12:00am Future Medications Future medication information is unavailable Patient Instructions Patient instructions are unavailable Goals Acute Goals Author Authored Date Review and follow discharge instructions. Nora Petit [facility] March 12, 2024 10:57am Absence of falls Include the following as appropriate: *Postfall assessment *Exercise assistance *Toileting schedule implementation *Patient/family/caregiver participation promotion [facility] March 12, 2024 5:00pm Reduced pain sensation Include the following as appropriate: *Opiod analgesic side-effect assessment *Opiod dependence s/s assessment *Cognitive emotional support *Pharmacy consult for chronic pain management Promote: *Patient/Family participation Educate on the following as appropriate: *Non-Pharmacologic Pain Management *Pain Communication *Pain management treatment plan *Pain medication side effect *Pharmacologic pain management *Patient-Controlled Analgesia *Treatment Goals [facility] March 12, 2024 5:00pm Wound/Injury/Incision healin g/absent *Absence of infection signs and symptoms *No deterioration in wound *No new skin breakdown *Patient understands wound care factors Nutrition and Fluid Promotion *Assist with Meals if needed *Offer fluids q 1hr *Dietitian consult if injury *Supplements Offered if ordered [facility] March 12, 2024 5:00p m Absence of new skin breakdow n Maintain intact skin [facility] March 12, 2024 5:00pm Understand skin management s trategy Patient participates in wound prevention interventions *Ambulate as able *Reposition at regular intervals *Limit sitting 1-2 hours *Assist/Remind patient to lift and shift every 15 minutes while sitting *Consume adequate nutrition *Consume adequate oral fluids *Dress in long sleeves and pants when possible *Offload heels *Reduce friction *Reduce sacral pressure *Skin care and wound healing promotion *Apply protective padding to surfaces as needed *Skin inspected under and around devices *Bed Cradle/[place] Lift *Chair Specialty Surface *Bed Specialty Surface Education Wound Care *Cleanse wound as instructed *Inspect wound for signs of infection *Replace wound dressing as instructed Education, skin self assessment *Assess for blisters, increased skin temperature, skin discoloration, and swelling especially when medical file clerk is used *Use mirror for tkiiiufdt-nl-itwzyox skin areas [facility] March 12, 2024 5:00pm Absence of self-harm Promote: *Therapeutic relationship establisment *Actively listen to patient *Avoid offering solutions *Avoid repeated discussion on suicide history *Demonstrate concerns *Discuss plan for dealing with social stigmatization *Discuss plans for dealing with future suicidal ideation *Encourage expression of feelings *Encourage hope *Establish trust *Explore circumstances and motivations related to suicidality *Explore patient's perspective and needs *Help patient identify underlying problems *Interact with patient at regular intervals *Involve patient in care planning and problem solving *Refrain from criticizing patient's actions *Set limits *Set mutual goals *Utilize direct, nonjudgmental approach in discussing suicide [facility] March 12, 2024 5:00pm Identify, develop & use effe ctive coping * Verbalizes willingness to explore issues * Identifies own maladaptive coping behaviors * Verbalizes willingness to seek professional support * Identifies available resources/support systems * Demonstrates behavioral changes * Describes positive results of new behaviors [facility] March 12, 2024 5:00pm Recognize choices and altern atives [facility] March 12, 2024 5:00pm
--- OUTSIDE RECORDS SUMMARY | 2024-11-17 19:37 | XMS_ITS | Continuity of Care Document ---
Author Organization [facility] Address [address] [place] [address] Phone Care Team Providers Care Hotel Operation Manager Name Role Phone DO Loree Vallecillo Attending Provider Care Teams Visit Care Team Team Status: Inactive Member Role Status Dates Loree Vallecillo DO Admit Provide r, Attending Provider Active Start: March 08, 2024 End: March 12, 2024 Chief Complaint and Reason for Visit [...] 12:00a m March 12, 2024 4:23pm Pnv,Calcium 76-Zopt-Fyfrr Acid (M-Prashant Plus) 27 mg iron- 1 mg tablet Active 1 TAB PO Daily March 08, 2024 12:00a m Hydroxyzine Hcl Active 50 MG PO Three times per day 60 March 12, 2024 12:00a m Propranolol Active 10 MG PO Three ti mes per day 60 March 12, 2024 12:00a m Cephalexin Active 500 MG PO Three fernanda es per day March 12, 2024 10:43a m Fluoxetine Active 20 MG PO Daily 30 March 12, 2024 10:43a m Vital Signs Vital Reading Result Reference Range Collection Date/Time Height 172.72 cm March 11 8:28pm Weight 59.05 kg March 11 8:28pm Body Temperature 36.7 Tri 36.4-37.6 March 12, 2024 8:49am Heart Rate 75 /min 60-100 March 12 10:13am Respiratory rate 16 /min -March 12, 2024 8:49am Oxygen saturation by Pulse oximetry 100 % 88-100 March 12, 2024 10: 13am BP Systolic 106 mm[Hg] 95-130 March 12 10:13am BP Diastolic 71 mm[Hg] 55-80 March 12 10:13am BMI (Body Mass Index) 19.8 kg/m2 March 12, 2024 9:45am Insurance Providers Guarantor Lindsey Chandra Address [address] [place] [address] Contact Info. Home Phone: Payer Policy Id Coverage Id Subscriber's Name Subscriber Id Effective Date Expiration Date [employer] [id number] Lindsey Chandra [id number] Encounters Encounter Location(s) Arrival/Admit Date Discharge/Depart Date Provider(s) Discharged Inpatient [address] [facility] March 08, 2024 5:11pm March 12, 2024 4:40pm Loree Vallecillo DO Recent Diagnosis Onset Date Suicidal ideation Functional [...] Date Review and follow discharge instructions. Nora Quinteroaide [facility] March 12, 2024 10:57am Absence of falls Include the following as appropriate: *Postfall assessment *Exercise assistance *Toileting schedule implementation *Patient/family/caregiver participation promotion [facility] March 12, 2024 5:00pm Reduced pain sensation Include the following as appropriate: *Opiod analgesic side-effect assessment *Opiod dependence s/s assessment *Cognitive emotional support *Pharmacy consult for chronic pain management Promote: *Patient/Family participation Educate on the following as appropriate: *Non-Pharmacologic Pain Management *Pain Communication *Pain management treatment plan *Pain medication side effect *Pharmacologic pain management *Patient-Controlled Analgesia *Treatment Goals [facility] March 12, 2024 5:00pm Wound/Injury/Incision healin g/absent *Absence of infection signs and symptoms *No deterioration in wound *No new skin breakdown *Patient understands wound care factors Nutrition and Fluid Promotion *Assist with Meals if needed *Offer fluids q 1hr *Dietitian consult if injury *Supplements Offered if ordered [facility] March 12, 2024 5:00p m Absence of new skin breakdow n Maintain intact skin [facility] March 12, 2024 5:00pm Understand skin [...] *Skin inspected under and around devices *Bed Cradle/[place] Lift *Chair Specialty Surface *Bed Specialty Surface Education Wound Care *Cleanse wound as instructed *Inspect wound for signs of infection *Replace wound dressing as instructed Education, skin self assessment *Assess for blisters, increased skin temperature, skin discoloration, and swelling especially when medical sonographer is used *Use mirror for pshflczns-pm-xbyirjk skin areas [facility] March 12, 2024 5:00pm Absence of [...] *Utilize direct, nonjudgmental approach in discussing suicide [facility] March 12, 2024 5:00pm Identify, develop & use effe ctive coping * Verbalizes willingness to explore issues * Identifies own maladaptive coping behaviors * Verbalizes willingness to seek professional support * Identifies available resources/support systems * Demonstrates behavioral changes * Describes positive results of new behaviors [facility] March 12, 2024 5:00pm Recognize choices and altern atives [facility] March 12, 2024 5:00pm
[2024-11-17 19:41] VITALS: BP 112/64; PULSE 100; RESP 18; TEMP 37.3; O2SAT 98; BMI 22.0
[2024-11-17] MEDS: 0.9 % SODIUM CHLORIDE 1000 ml 1,000 ML IV (20:17)
[2024-11-17 20:23] VITALS: PULSE 75; O2SAT 100
[2024-11-17 20:24] LABS: Basophils Absolute Auto 0.01 K/uL (0.00-0.30); Basophils Percent Auto 0.1 % (0.0-3.0); Eosinophils Absolute Auto 0.02 K/uL (0.00-0.50); Eosinophils Percent Auto 0.2 % (0.0-7.0); Hemoglobin* 12.8 gm/dL (12.0-16.0); Immature Granulocytes Abs Auto 0.01 K/uL (0.00-0.30); Immature Granulocytes Pct Auto 0.1 %; Lymphocytes Percent Auto 2.9 % (20-44); Mean Corpuscular HGB Conc 34 gm/dL (32-36); Mean Corpuscular Hemoglobin 30 pg (26-34); Mean Corpuscular Volume 89 fL (80-100); Monocytes Percent Auto 5.1 % (0.0-11.0); Neutrophils Percent Auto 91.6 % (42.0-72.0); Platelet Count* 159 K/uL (140-440); RDW Coefficient of Variation % 11.9 % (11.5-15.5); Red Blood Count 4.26 m/uL (4.00-5.20); White Blood Count* 9.78 K/uL (4.50-11.00)
--- NOTE | 2024-11-17 20:24 | ED.GENADULT ---
HPI - General Adult General Chief complaint: Nausea/Vomiting Stated complaint: Food Poisening, Fever, dehydrated Time Seen by Provider: 11/17/24 19:59 History of Present Illness HPI narrative: Patient is a 24-year-old woman who states that she is not presents with intractable vomiting after enjoying Taco Garcia tonight. Patient has also been helping her friend move and did not have much D during the day. Patient presents with general malaise body aches nausea vomiting. She has minimal abdominal discomfort no chest pain or shortness of breath. No fevers no chills. No stiff neck or headache. Symptoms seem to be improving since taking Pepto-Bismo in Zofran at home. Related Data Home Medications ?Medication ?Instructions ?Recorded ?Confirmed acetaminophen 325 mg tablet mg PO 03/05/24 fluoxetine 20 mg capsule 20 mg PO DAILY 03/05/24 03/05/24 ondansetron 4 mg disintegrating mg PO 03/05/24 tablet polyethylene glycol 3350 17 g PO 03/05/24 gram/dose oral powder vitamin with calcium tab PO 03/05/24 no.72-iron 27 mg-folic acid 1 mg tablet (M-Prashant Plus) simethicone 125 mg chewable tablet 125 mg PO 3XD 03/05/24 03/05/24 Allergies Allergy/AdvReac Type Severity Reaction Status Date / Time No Known Drug Allergies Allergy Verified 03/05/24 18:06 Review of Systems Status of ROS: Reports: 10 or more systems reviewed and unremarkable except as noted in History and below PFSH PFSH Social History Smoking Status: Never smoker Do you use any of these nicotine containing products: None Second hand tobacco smoke exposure: No How often do you have a drink containing alcohol: never AUDIT-C Alcohol total score: 0 Non-prescribed substance use: denies use Exam Narrative: Exam Narrative: EXAM GENERAL: Patient appears comfortable and well. EYES: No scleral icterus. LYMPH: No supraclavicular or cervical lymphadenopathy. SKIN: Visible skin seen during exam normal or with benign process only. EXT: No dependent lower extremity pedal edema. HEART: Regular rate and rhythm with no murmurs, rubs, or gallops. LUNGS: Clear to auscultation bilaterally with no crackles or wheezes. ABD: Soft, non tender, non distended. PSYCH: Good eye contact, speech is not pressured. Const: Vital Signs, click to edit/add: Vital Signs - 24 hr 11/17/24 19:41 11/17/24 20:23 Temperature 99.1 F Pulse Rate [Left P ulse Oximeter] 100 75 Respiratory Rate 18 Blood Pressure [Ri ght Upper Arm] 112/64 Pulse Oximetry 98 100 Oxygen Delivery Me thod Room Air Room Air Course Course ED Course: Patient seen and examined. CBC basic metabolic panel ordered. 1 L normal saline given. Vital Signs Vital signs: Initial Vital Signs Temperature 99.1 F 11/17/24 19:41 Temperature Source Temporal Artery Scan 11/17/24 19:41 Pulse Rate 100 11/17/24 19:41 Pulse Rhythm Regular 11/17/24 19:41 Respiratory Rate 18 11/17/24 19:41 Blood Pressure 112/64 11/17/24 19:41 Blood Pressure Mean 80 11/17/24 19:41 Blood Pressure Position Sitting 11/17/24 19:41 Pulse Oximetry 98 11/17/24 19:41 Oxygen Delivery Method Room Air 11/17/24 19:41 Vital Signs Temperature 99.1 F 11/17/24 19:41 Pulse Rate 100 11/17/24 19:41 Respiratory Rate 18 11/17/24 19:41 Blood Pressure 112/64 11/17/24 19:41 Pulse Oximetry 98 11/17/24 19:41 Oxygen Delivery Method Room Air 11/17/24 19:41 Temperature 99.1 F 11/17/24 19:41 Pulse Rate 75 11/17/24 20:23 Respiratory Rate 18 11/17/24 19:41 Blood Pressure 112/64 11/17/24 19:41 Pulse Oximetry 100 11/17/24 20:23 Oxygen Delivery Method Room Air 11/17/24 20:23 Medications Administered Medications: Generic Name Dose Route Start Last Admin Trade Name Freq PRN Reason Stop Dose Admin Sodium Chloride 1,000 mls @ 1,000 mls/hr 11/17/24 20:03 11/17/24 20:17 0.9 % Sodium Chloride 1000 Ml IV 11/17/24 21:02 1,000 mls/hr .Q1H RUSS Administration Medical Decision Making MDM Narrative Medical decision making narrative: Patient is a 24-year-old woman who did need much earlier today and had Taco Garcia later in the day. She presented with nausea vomiting and fatigue. Labs are reassuring. She has underlying bowel issues as noted by the simethicone and daily polyethylene glycol and Zofran that she takes at home. I did give her L of normal saline she has improvement in her symptoms. I do not believe imaging is needed. Differential diagnosis includes but not limited to gastroenteritis food poisoning small-bowel obstruction cholecystitis acute appendicitis. At this point reassurance is offered. She has Zofran at home and can follow up with her primary physician as needed. Lab Data Labs: Lab Results 11/17/24 Range/Units 20:15 WBC 9.78 (4.50-11.00) K/uL RBC 4.26 (4.00-5.20) m/uL Hgb 12.8 (12.0-16.0) gm/dL Hct 38.0 (33.0-51.0) % MCV 89 (80-100) fL MCH 30 (26-34) pg MCHC 34 (32-36) gm/dL RDW Coeff of Anel 11.9 (11.5-15.5) % Plt Count 159 (140-440) K/uL Neut % (Auto) 91.6 H (42.0-72.0) % Lymph % (Auto) 2.9 L (20-44) % Barnwell % (Auto) 5.1 (0.0-11.0) % Eos % (Auto) 0.2 (0.0-7.0) % Baso % (Auto) 0.1 (0.0-3.0) % Neut # (Auto) 9.00 H (1.7-7.0) K/uL Lymph # (Auto) 0.30 L (0.90-2.90) K/uL Barnwell # (Auto) 0.50 (0.00-0.90) K/UL Eos # (Auto) 0.02 (0.00-0.50) K/uL Baso # (Auto) 0.01 (0.00-0.30) K/uL Abs Immat Gran (auto) 0.01 (0.00-0.30) K/uL Imm/Tot Granulo (auto) 0.1 % Sodium 140 (135-149) mmol/L Potassium 3.4 L (3.6-5.1) mmol/L Chloride 111 (96-114) mmol/L Carbon Dioxide 20 (20-32) mmol/L Anion Gap 9 (7-15) mEq/L BUN 14 (5-24) mg/dL Creatinine 0.6 (0.5-1.5) mg/dL Estimated Creat Clear 148.36 Estimated GFR 130 ml/min Glucose 117 H (60-115) mg/dL Calcium 8.6 (8.4-10.6) mg/dL Total Bilirubin 0.6 (0.1-1.5) mg/dL AST 19 (12-35) U/L ALT 10 (4-35) U/L Alkaline Phosphatase 43 (40-150) U/L Total Protein 6.7 (6.0-8.3) g/dL Albumin 4.2 (3.3-5.0) g/dL Lipase 66 (23-300) U/L Discharge Plan Discharge Clinical Impression: Vomiting Patient Disposition: Home, Self-Care Condition: Stable Instructions: Acute Nausea and Vomiting (ED) Activity Level: No Restrictions Discharge Diet: Regular Prescriptions: No Action acetaminophen 325 mg tablet PO simethicone 125 mg tablet,chewable 125 mg PO 3XD polyethylene glycol 3350 17 gram/dose powder PO ondansetron 4 mg tablet,disintegrating PO fluoxetine 20 mg capsule 20 mg PO DAILY M- Plus 27 mg iron- 1 mg tablet PO Follow Up/Referrals: Aleida Bartholomew PA-C [Primary Care Provider] - Stand Alone Forms: MyHealth Info Instructions
[2024-11-17 20:26] LABS: Slide Review Reflex No
[2024-11-17 20:38] LABS: Albumin* 4.2 g/dL (3.3-5.0); Chloride* 111 mmol/L (96-114); Potassium* 3.4 mmol/L (3.6-5.1); Sodium* 140 mmol/L (135-149)
[2024-11-17 20:40] LABS: Anion Gap 9 mEq/L (7-15); Bilirubin Total* 0.6 mg/dL (0.1-1.5); Carbon Dioxide* 20 mmol/L (20-32); Creatinine* 0.6 mg/dL (0.5-1.5); Est. Creatinine Clearance* 148.36; Estimated Glomerular Filt Rate 130 ml/min
[2024-11-17 20:41] LABS: Alanine Aminotransferase* 10 U/L (4-35); Alkaline Phosphatase* 43 U/L (40-150); Aspartate Amino Transferase* 19 U/L (12-35); Blood Urea Nitrogen* 14 mg/dL (5-24); Calcium* 8.6 mg/dL (8.4-10.6); Glucose* 117 mg/dL (60-115); Lipase* 66 U/L (23-300); Total Protein* 6.7 g/dL (6.0-8.3)
[2024-11-17 21:18] LABS: Appearance Urine Clear (Clear); Bilirubin Urine Negative (Negative); Blood Urine Negative (Negative); Color Urine Yellow (Yellow); Glucose Urine Negative (Negative); Ketones Urine 4+ (Negative); Leukocyte Esterase Urine Negative (Negative); Nitrite Urine Negative (Negative); Protein Urine Negative (Negative); Urobilinogen Urine 0.2 (0.2-1.0)
== END 2024-11-17 21:36 | disposition home or self-care (01) ==
PROVIDERS: Emergency Provider Internal Medicine; PCP Physician Assistant
DX: R11.10 Vomiting, unspecified (principal)
CPT/HCPCS: 36415; 80053; 81003; 83690; 85025; 99283; J7030